=== PATIENT | male | born 1995 | race Caucasian/White ===

== ENCOUNTER 2024-08-29 11:41 | Inpatient (IN) ==
--- OUTSIDE RECORDS SUMMARY | 2024-08-29 11:45 | External Medical Summary | Summary of Care ---
Author Name Unknown Organization [facility] Address [address] [place] [address] Phone [phone] Care Team Providers Care Parallel Computing Software Engineer Name Role Phone Remington Pop DO Primary Care Provider [phone] Reason for Referral * Evaluate & Treat - Unlimited Visits (Within 30 days (routine)) - Pending Review Specialty Diagnoses / Procedures Referred By Jenn cabrera Referred To Contact Psychiatry Diagnoses Recurrent major depressive disorder, in remission (HCC) WALDO (generalized anxiety disorder) Remington Pop DO [address] [place] [address] Referral ID Status Reason Start Date Expiration Date Visits Requested Visits Authorized [id number] Pending Review Specialty Services Required 05/11/2024 [id number] Question Answer Referral Priority Within 30 days (routine) Where should this appointment be scheduled? [facility] Is this referral for medication management? Yes Reason for Referral Anxiety * Evaluate & Treat - Unlimited Visits (Within 30 days (routine)) - Pending Review Specialty Diagnoses / Procedures Referred By Jenn cabrera Referred To Contact Psychology Diagnoses Recurrent major depressive disorder, in remission (HCC) WALDO (generalized anxiety disorder) Remington Pop, DO [address] [place] [address] Referral ID Status Reason Start Date Expiration Date Visits Requested Visits Authorized [id number] Pending Review Specialty Services Required 05/11/[phone] Question Answer Referral Priority Within 30 days (routine) Where should this appointment be scheduled? [facility] Is this referral for medication management? No Reason for Referral: Depression/Anxiety/Bipolar Specific Condition? Generalized Anxiety/Worry Reason for Visit * Reason Comments NEW PATIENT Encounter Details Date Type Department Care Team (Late st Contact Info) Description 05/11/2024 6:00 PM EDT Telemedicine Family Practice [address] [place] [address] [facility] [place], [place] [address] Remington Pop DO [address] [facility] [place] [address] Recurrent major depressive disorder, in remission (HCC)*; WALDO (generalized anxiety disorder) Allergies Active Allergy Reactions Criticality Noted Date Comments Lamotrigine Rash Medium 02/19/2018 Pollen Unknown documented as of this encounter (statuses as of 05/11/2024) Medications Medication Sig Dispensed Refills Start Date End Date Status clonazePAM 0.5 MG Oral Tablet (KlonoPIN) Take 2 Tablets by mouth 2 times a day as needed for Anxiety. Active Desvenlafaxine Succinate ER 100 MG Oral Tablet Extended Release 24 Hour (Pristiq) Take 1 Tablet by mouth in the morning. Active Mirtazapine 30 MG Oral Tablet (Remeron) Take 1 Tablet by mouth at bedtime. Active Gabapentin 600 MG Oral Tablet (Neurontin)Indica tions:Recurrent major depressive disorder, in remission (HCC),WALDO (generalized anxiety disorder) Take 1 Tablet by mouth in the morning and 1 Tablet before bedtime. 60 Tablet 5 05/11/2024 Active busPIRone HCl 15 MG Oral Tablet (Buspar)Indicatio ns:Recurrent major depressive disorder, in remission (HCC),WALDO (generalized anxiety disorder) Take 1 Tablet by mouth 2 times a day. 60 Tablet 5 05/11/2024 Active traZODone (DESYREL) 50 MG Tablet Take 50 mg by mouth at bedtime as needed for Sleep. 05/11/2024 Discontinued (Medication List Clean Up) busPIRone (BUSPAR) 10 MG TabletIndications :WALDO (generalized anxiety disorder) Take 10 mg by mouth 3 times a day. 05/23/2018 05/11/2024 Discontinued (Medication List Clean Up) gabapentin (NEURONTIN) 100 MG CapsuleIndication s:WALDO (generalized anxiety disorder) Take 200 mg by mouth 3 times a day. 05/10/2018 05/11/2024 Discontinued (Medication/ Dose Changed) PARoxetine (PAXIL) 40 MG TabletIndications :WALDO (generalized anxiety disorder) Take 40 mg by mouth daily. 05/05/2018 05/11/2024 Discontinued (Medication List Clean Up) LORazepam (ATIVAN) 1 MG TabletIndications :WALDO (generalized anxiety disorder) Take 1 Tab by mouth daily as needed for Anxiety. 30 Tab 05/27/2018 05/11/2024 Discontinued (Medication List Clean Up) traZODone (DESYREL) 50 MG TabletIndications :WALDO (generalized anxiety disorder),Primary insomnia Take 1 Tab by mouth at bedtime. 30 Tab 5 05/27/2018 05/11/2024 Discontinued (Medication List Clean Up) busPIRone HCl 15 MG Oral Tablet (Buspar) Take 1 Tablet by mouth 2 times a day. 05/11/2024 Discontinued (Refill) Gabapentin 600 MG Oral Tablet (Neurontin) Take 1 Tablet by mouth 2 times a day as needed. 05/11/2024 Discontinued (Refill) documented as of this encounter (statuses as of 05/11/2024) Active Problems Problem Noted Date Diagnosed Date Marijuana use 06/27/2016 Allergic rhinitis 04/25/2016 Varicocele 05/27/2014 documented as of this encounter (statuses as of 05/11/2024) Immunizations Name Administration Dates Next Due DTaP Dipth/Tet/Acell Pertussis (Infanrix), Peds 10/08/2002,02/07/1999,07/24/1998,03/15,01/08/1998 H1N1 2009 Influenza, Intranasal 12/18/2009 HIB PRP-T, 4 Dose, PF, IM (H iberix, ActHib) 11/09/1998,07/24/1998,03/15/1998,01/03 HPV Vaccine, 4-Valent 11/29/2014,07/12/2014,0711/2013 Hepatitis A, Ped/Adol., 18 y ear and below, 2-Dose 09/23/2011,03/15/2011 Hepatitis B, 0-19 yrs 07/24/1998,01/03/1998,10/05 IPV - Polio Virus Vaccine (Inact) 2001,11/09/1998,03/15/1998,01/03 MMR - Measles/Mumps/Rubella Vaccine 10/08/2002,0 11/09/1998 Meningococcal Conjugate Vacc ine (Menactra/Menveo) 05/03/2014,06/29/2009 Pneumococcal Conjugate Vacci ne, 7 Valent 10/23/2000 Seasonal Influenza, Split, I IV3, With Preserve, Inj 08/23/2014,09/13/2011,08/07/2010,06/29,10/08/2007 TDAP, Age 7 and older, IM (Adacel) 06/29/2009 Varicella Vaccine (Chicken Pox) 11/09/1998 documented as of this encounter Social History Tobacco Use Types Packs/Day Years Used Date Smoking Tobacco: Never Smokeless Tobacco: Never Alcohol Use Standard Drinks/Week Comments No 0 (1 standard drink = 0.6 oz pur e alcohol) PHQ-2 Answer Date Recorded PHQ-2 Score 14 09/07/2018 Utilities Answer Date Recorded Do you have trouble paying y our heating, water, or electric bill? (Adult - for ages 18 years and over) Not on file 04/20/2024 Is your family able to pay t he heat, water, or electric bill? (Household - for ages 0-17 years) Not on file 04/20/2024 Does your family have access to good internet? (Household - for ages 0-17 years) Not on file 04/20/2024 Social Connections Answer Date Recorded How often do you feel lonely or isolated from those around you? (Adult - for ages 18 years and over) Not on file 04/20/2024 Sex and Gender Information Value Date Recorded Sex Assigned at Not on file Gender Identity Not on file Sexual Orientation Not on file documented as of this encounter Progress Notes * Remington Pop, DO - 05/11/2024 5:59 PM EDT Subjective: Marcos Maravilla is a 28 year old male. Chief Complaint Patient presents with NEW PATIENT Patient location: HOME. I was in a hospital or clinic location. After connecting through televideo,patient was verified with two unique identifiers. Patient (or authorized legal event sales representative) was then informed that this was a Telemedicine visit and being conducted confidentially over secure lines. Methods to assure confidentiality were taken. Patient acknowledged consent and understanding of pr ivacy and security of the Telemedicine visit. The patient agreed to participate. HPI: Pt here as new patient. Living in [place] for the summer. May be staying longer than that. 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 He came up with a girl but went through a break-up. He was seeing a referral for a psychiatrist and a therapist. He was seeing one in [place]. Elvaexsari has been working well. On gabapentin and buspirone. We discussed Klonopin and concerns of abuse. He had a history of substance abuse. He is working with his psychiatrist on reducing it. I told him I'd like to get a note from his psychiatrist to show that he should be taking this. The last note I have is his primary care suggesting he shouldn't get it. PMHx, meds, and allergies reviewed Patient Active Problem List Diagnosis Varicocele Allergic rhinitis Marijuana use Current Outpatient Medications Medication Sig Dispense Refill busPIRone HCl 15 MG Oral Tablet (Buspar) Take 1 Tablet by mouth 2 times a day. Gabapentin 600 MG Oral Tablet (Neurontin) Take 1 Tablet by mouth 2 times a day as needed. clonazePAM 0.5 MG Oral Tablet (KlonoPIN) Take 2 Tablets by mouth 2 times a day as needed for Anxiety. Desvenlafaxine Succinate ER 100 MG Oral Tablet Extended Release 24 Hour (Pristiq) Take 1 Tablet by mouth in the morning. Mirtazapine 30 MG Oral Tablet (Remeron) Take 1 Tablet by mouth at bedtime. No current facility-administered medications for this visit. Review of patient's allergies indicates: Allergen Reactions Lamotrigine Rash Pollen Unknown OBJECTIVE: There were no vitals taken for this visit. Estimated body mass index is 20.52 kg/m as calculated from the following: Height as of 05/27/18: 1.765 m (5' 9.5"). Weight as of 05/27/18: 64 kg (141 lb). BP Readings from Last 3 Encounters: 05/27/18 122/70 11/06/17 126/84 04/15/17 112/78 Wt Readings from Last 3 Encounters: 05/27/18 64 kg (141 lb) 11/06/17 60.1 kg (132 lb 6.4 oz) 04/15/17 61.8 kg (136 lb 3.2 oz) (21%, Z= -0.82)* * Growth percentiles are based on [facility] (Boys, 2-20 Years) data. ROS: Negative except for above PHYSICAL EXAM: General: alert, healthy, and no distress Head: Normocephalic, No masses, lesions, tenderness or abnormalities ASSESSMENT/Plan Recurrent major depressive disorder, in remission (HCC) (Primary) - Gabapentin 600 MG Oral Tablet (Neurontin); Take 1 Tablet by mouth in the morning and 1 Tablet before bedtime. - busPIRone HCl 15 MG Oral Tablet (Buspar); Take 1 Tablet by mouth 2 times a day. - ADULT/PEDS PSYCHOLOGY REFERRAL OP - ADULT/PEDS PSYCHIATRY REFERRAL OP WALDO (generalized anxiety disorder) - Gabapentin 600 MG Oral Tablet (Neurontin); Take 1 Tablet by mouth in the morning and 1 Tablet before bedtime. - busPIRone HCl 15 MG Oral Tablet (Buspar); Take 1 Tablet by mouth 2 times a day. - ADULT/PEDS PSYCHOLOGY REFERRAL OP - ADULT/PEDS PSYCHIATRY REFERRAL OP It was nice to see Willi again. Buspirone and gabapentin sent and psychology and psychiatry referrals placed. I think he understands my apprehension about giving him Clonazepam. 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 I also don't have him here to do a UDS or med use agreement. I asked him to get a letter from his psychiatrist stating that he should be on this medication and then I would prescribe it until he sees psychiatry. The above was discussed and understanding was expressed. Remington Pop DO documented in this encounter Nursing Notes * Siria Rehman LPN - 05/11/2024 5:51 PM EDT Marcos Maravilla presents as new patient to get established. Medications & HM reviewed/updated. documented in this encounter Plan of Treatment Scheduled Referrals Name Type Priority Associated Diagnoses Orde r Schedule ADULT/PEDS PSYCHOLOGY REFERRAL OP Referral Within 30 days (routine) Recurrent major depressive disorder, in remission (HCC) WALDO (generalized anxiety disorder) Ordered: 05/11/2024 ADULT/PEDS PSYCHIATRY REFERRAL OP Referral Within 30 days (routine) Recurrent major depressive disorder, in remission (HCC) WALDO (generalized anxiety disorder) Ordered: 05/11/2024 Health Maintenance Due Date Last Done Comments Hepatitis C Screening 2015 Depression Monitoring 05/27/2019 05/27/2018 DTaP,Tdap,and Td Vaccines (7 - Td or Tdap) 06/29/2019 06/29/2009, 10/08/2002, 02/07/1999, Additional history exists COVID-19 Vaccine ( season) 2023 Influenza Vaccine (FLU shot) (#1) 2024 08/23/2014, 09/13/2011, 08/07/2010, Additional history exists Hepatitis B Vaccine Completed 07/24/1998, 01/03/1998, 1997 MENINGOCOCCAL (MENACTRA/MENVEO) Completed 05/03/2014, 05/03/2014, 06/29/2009, Additional history exists HPV (Gardasil) Vaccine Completed 5, 07/12/2014, 05/03/2014 HIV Screening Completed 10/28/2019 Pneumococcal Vaccine: Pediatrics (0 to 5 Years) and At-Risk Patients (6 to 64 Years) Aged Out No longer eligible based on patient's age to complete this topic documented as of this encounter Medical Devices Not on filedocumented as of this encounter Visit Diagnoses Diagnosis Recurrent major depressive disorder, in remission (HCC)- Primary WALDO (generalized anxiety disorder) Generalized anxiety disorder documented in this encounter Care Teams Parallel Computing Software Engineer Relationship Specialty Start Date End Date Remington Pop DO PCP - General Family Medicine 04/12/17 documented as of this encounter
--- OUTSIDE RECORDS SUMMARY | 2024-08-29 11:45 | External Medical Summary | Summary of Care ---
Author Name Unknown Organization [facility] Address [address] [facility] [place] [address] Phone [phone] Care Team Providers Care Multi Needle Machine Operator Name Role Phone Remington Pop DO Primary Care Provider [phone] Encounter Details Date Type Department Care Team (Late st Contact Info) Description 05/11/2024 Telephone Family Practice [facility] [address] [place] [address] Remington Pop DO [address] [facility] [place] [address] Allergies Active Allergy Reactions Criticality Noted Date Comments Lamotrigine Rash Medium 02/19/2018 Pollen Unknown documented as of this encounter (statuses as of 05/12/2024) Medications Medication Sig Dispensed Refills Start Date [...] bedtime. Active Gabapentin 600 MG Oral Tablet (Neurontin)Indication s:Recurrent major depressive disorder, in remission (HCC),WALDO (generalized anxiety disorder) Take 1 Tablet by mouth in the morning and 1 Tablet before bedtime. 60 Tablet 5 05/11/2024 Active busPIRone HCl 15 MG Oral Tablet (Buspar)Indications:R ecurrent major depressive disorder, in remission (HCC),WALDO (generalized anxiety disorder) Take 1 Tablet by mouth 2 times a day. 60 Tablet 5 05/11/2024 Active documented as of this encounter (statuses as of 05/12/2024) Active Problems Problem Noted Date Diagnosed Date Marijuana use 06/27/2016 Allergic rhinitis 04/25/2016 Varicocele 05/27/2014 documented as of this encounter (statuses as of 05/12/2024) Immunizations Name Administration Dates Next Due DTaP Dipth/Tet/Acell Pertussis (Infanrix), Peds 10/08/2002,02/07/1999,07/24/1998,03/15,01/08/1998 H1N1 2009 Influenza, Intranasal 12/18/2009 HIB PRP-T, 4 Dose, PF, IM (H iberix, ActHib) 11/09/1998,07/24/1998,03/15/1998,01/03 HPV Vaccine, 4-Valent 11/29/2014,07/12/2014,07/0 11/2013 Hepatitis A, Ped/Adol., 18 y ear and [...] on file documented as of this encounter Miscellaneous Notes * Telephone Encounter - Shelby To [facility] - 05/12/2024 1:59 PM EDT Please reach out to the patient to schedule Psychology and Psychiatry referrals. * Telephone Encounter - Remington Pop DO - 05/11/2024 6:17 PM EDT Please call to schedule psychology and psychiatry referral. Please also schedule follow-up with me in 6 months documented in this encounter Plan of Treatment Upcoming Encounters Date Type Department Care Team (Late st Contact Info) Description 11/16/2024 1:40 PM EST Office Visit Family Practice [facility] [place] [address] [place], [place] [address] Remington Pop DO [address] [place] [address] Health Maintenance Due Date Last Done Comments Hepatitis C Screening 2015 Depression Monitoring 05/27/2019 05/27/2018 DTaP,Tdap,and Td Vaccines (7 - Td or Tdap) 06/29/2019 06/29/2009, 10/08/2002, 02/07/1999, Additional history exists COVID-19 Vaccine (1 - 2023-24 season) 2023 Influenza Vaccine (FLU shot) (#1) [...] Not on filedocumented as of this encounter Care Teams Multi Needle Machine Operator Relationship Specialty Start Date End Date Remington Pop DO PCP - General Family Medicine 04/12/17 documented as of this encounter
--- NOTE | 2024-08-29 12:06 | Emergency Department Note ---
History of Present Illness General Chief complaint: Mental Health Evaluation Stated complaint: SUICIDAL IDEATION, ANXIETY/DEPRESSION Time Seen by Provider: 08/29/24 11:50 Source: patient, RN notes reviewed and old records reviewed (03/22/24-ER visit for shortness of breath/asthma/allergies) Mode of arrival: ambulatory Limitations: no limitations History of Present Illness Maximum Pain Intensity: 7 This patient is a 28-year-old male who comes in after having suicidal ideations he has had no attempt or any definite plan he has had this in the past he does have a history of anxiety and depression he moved here recently from [place] and does not have a psychiatrist or counselor and feels like that causing a lot of his problems he also left his girlfriend has had for some family issues as well. He has been taking occasional extra Xanax to help with anxiety but denies any overdose aspirin or Tylenol use. No homicidal ideations. He sneezed about a week ago and had pain in the right side of his chest that hurts worse with breathing. He did relapse with cocaine and you for 2 days but did not use any for the last 8 days ago. Denies alcohol any other drugs. Denies shortness of breath or trauma or abdominal pain Home Medications Medication Instructions Recorded Confirmed Type bupropion HCl 100 mg tablet,12 hr 100 mg PO DAILY 08/29/24 08/29/24 History sustained-release (Wellbutrin SR) buspirone 15 mg tablet 15 mg PO BID 08/29/24 08/29/24 History clonazepam 0.5 mg tablet (Klonopin) 1 mg PO BID 08/29/24 08/29/24 History desvenlafaxine succinate 100 mg 100 mg PO DAILY 08/29/24 08/29/24 History tablet,extended release 24 hr (Pristiq) gabapentin 600 mg tablet 600 mg PO BID 08/29/24 08/29/24 History (Neurontin) mirtazapine 30 mg tablet (Remeron) 30 mg PO HS 08/29/24 08/29/24 History Allergies Allergy/AdvReac Type Severity Reaction Status Date / Time lamotrigine [From Lamictal] Allergy Rash Unverified 08/29/24 16:22 Past Med/Surg History Problem List (Updated 08/29/24 @ 16:50 by Isaac Armenta MD) Suicidal ideations (Acute) Anxiety (Acute) Depression (Acute) Social History Smoking Status: Never smoker Tobacco Type: E-cigarettes / Vaping Preferred Language: [place] [employer] Regulator Required: No Beliefs That Will Affect Care: None Feels Safe at Home: Yes Gender Identity: Male Immunizations: Past med history anxiety and depression. 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 Review of Systems A total of 10 systems reviewed and were otherwise negative Physical Exam Vital Signs Vital Signs - 24 hr 08/29/24 11:47 08/29/24 13:54 08/29/24 15:18 Temperature 36.4 C L Temperature Source Temporal Artery Scan Pulse Rate 73 54 L Pulse Rate [Left Finger] 52 L Pulse Rhythm Regular Pulse Strength Normal Respiratory Rate 20 18 20 Respiratory Effort / Characteristics Non-Labored Spontaneous Respiratory Depth Normal Respiratory Pattern Regular Blood Pressure 101/65 109/70 Blood Pressure [Left Arm] 108/66 Blood Pressure Mean 77 Blood Pressure Mean [Left Arm] 80 Blood Pressure Position Sitting Pulse Oximetry 98 99 99 Oxygen Delivery Method Room Air Room Air Room Air Sepsis Recent Fever Within 48 Hours No Sepsis New/Unexplained Change in Mental Status No Sepsis Action Taken by Nursing No Action Required General: Well developed well nourished [id number] young male who appears in no acute distress, breathing comfortably on room air. Normal speech HEENT: Normal cephalic atraumatic. Pupils are equal round and reactive to light. Extraocular movements are intact. Oropharynx is pink with moist mucous membranes. No swelling of the mouth lips or tongue. Neck: Supple with a midline trachea. No meningeal signs or stiffness, no JVD or bruits. No Stridor. Chest: Clear to auscultation bilaterally. No wheezes or rhonchi. No increased work of breathing. Heart: Regular rate and rhythm without murmurs or gallops. Abdomen: Soft nontender, nondistended without rebound guarding or rigidity. Extremities: No cyanosis clubbing or edema. No calf tenderness or assymetry Spine/Back. Non tender to palpation. No CVA tenderness Skin: Good turgor without rashes. Neurologic exam: Cranial nerves two through 12 are intact. Motor and sensation are intact and symmetrical throughout. Psych: Normal thought process and affect he does have suicidal ideations Course Administered Medications Nicotine Polacrilex (Nicotine Polacrilex 2 Mg Gum) 2 piece MT Q2H PRN PRN Reason: smoking cessation Stop: 09/28/24 16:14 Last Admin: 08/29/24 16:41 Dose: 2 piece Documented By: STEVEN Discontinued Medications Miscellaneous Information (Patient's Allergy Info Needs Entered) 1 each N/A NOW STA Stop: 08/29/24 16:20 Last Admin: 08/29/24 16:42 Dose: Not Given Documented By: STEVEN Medical Decision Making Differential Diagnosis Depression, anxiety, toxicologic, metabolic, suicidal ideation, rib injury, pulmonary injury Medical Records Attestation: I reviewed the patient's medical records. Home Medications Current Medication List: was personally reviewed by me Laboratory Data Attestation: I reviewed the patient's lab results. 08/29/24 12:05 08/29/24 12:05 Lab Results 08/29/24 Range/Units 12:05 WBC 8.94 (4.8-10.8) K/ul RBC 4.95 (4.70-6.10) M/uL Hgb 14.3 (14.0-18.0) g/dl Hct 41.2 L (42.0-52.0) % MCV 83.2 (80.0-100.0) fL MCH 28.9 (25.0-34.0) pg MCHC 34.7 (32.0-36.0) g/dL RDW Std Deviation 39.2 (36.4-46.3) fL RDW Coeff of [place] 13.1 (11.5-14.5) % Plt Count 346 (130-400) K/uL MPV 10.2 (9.4-12.4) fL Immature Gran % (Auto) 0.2 % Neut % (Auto) 75.5 % Lymph % (Auto) 17.6 % [place] % (Auto) 6.2 % Eos % (Auto) 0.4 % Baso % (Auto) 0.1 % Neut # (Auto) 6.75 H (1.40-6.50) K/uL Lymph # (Auto) 1.57 (1.20-3.40) K/uL [place] # (Auto) 0.55 (0.11-0.59) K/uL Eos # (Auto) 0.04 (0.00-0.50) K/uL Baso # (Auto) 0.01 (0.00-0.20) K/uL Immature Gran # (Auto) 0.02 (0.01-0.20) K/uL Sodium 140 (136-145) mmol/L Potassium 4.0 (3.5-5.1) mmol/L Chloride 106 (98-107) mmol/L Carbon Dioxide 26 (21-32) mmol/L Anion Gap 8 (3-11) BUN 12 (6-23) mg/dl Creatinine 0.87 (0.6-1.4) mg/dl Est Cr Clr Drug Dosing 124.5 ml/min eGFR 122.04 BUN/Creatinine Ratio 13.8 (10-20) Glucose 99 (70-99(Fasting)) mg/dl Calcium 9.6 (8.6-10.3) mg/dl Total Bilirubin 0.4 (0.2-1.0) mg/dl AST 15 (13-39) U/L ALT 12 (7-52) U/L Alkaline Phosphatase 73 (34-104) U/L Total Protein 7.3 (6.0-8.3) gm/dl Albumin 4.6 (3.4-5.0) gm/dl Globulin 2.7 (2.5-4.0) gm/dl Albumin/Globulin Ratio 1.7 (0.9-2) TSH 2.243 (0.300-4.500) uIu/ml Urine Color Yellow Urine Appearance Clear (Clear) Urine pH 6.5 (4.5-7.5) Ur Specific [place] 1.007 (1.000-1.030) Urine Protein Negative (Negative) Urine Glucose (UA) Negative (Negative) Urine Ketones Negative (Negative) Urine Blood Negative (Negative) Urine Nitrite Negative (Negative) Urine Bilirubin Negative (Negative) Urine Urobilinogen Negative (Negative) Ur Leukocyte Esterase Negative (Negative) Salicylates < 3.0 L (3.0-30) mg/dl Urine Opiates Screen Neg (Neg) Ur Methadone, Qual Neg (Neg) Urine Fentanyl Screen Neg (Neg) Acetaminophen 11 (10-30) ug/ml Urine Barbiturates Neg (Neg) Ur Phencyclidine (PCP) Neg (Neg) U Amphetamin/Meth Scrn Neg (Neg) MDMA (Ecstasy) Screen Neg (Neg) U Benzodiazepines Scrn Neg (Neg) Ur Cocaine Metabolite Neg (Neg) U Marijuana (THC) Screen Pos H (Neg) Ethyl Alcohol mg/dL < 10.0 (<10.0) mg/dl SARS-CoV-2, RNA, NAAT NEGATIVE (NEGATIVE) Imaging Data Attestation: I personally reviewed and interpreted this imaging study as follows: My Impression: Chest x-rayno acute infiltrate, failure, pneumothorax seen Radiologist's Impression: Chest X-Ray 08/29/24 12:02 SINGLE VIEW CHEST CLINICAL HISTORY: Atypical/right-sided chest pain. FINDINGS: An AP, portable, upright chest radiograph is compared to study dated 03/22/2024. The cardiomediastinal silhouette is unremarkable. The lungs and pleural spaces are clear. No pneumothorax is seen. There are chronic/healed right-sided rib fractures. IMPRESSION: No active disease in the chest. ACT 112: Negative or not required by law. Electronically signed by: John Alicia M.D. 08/29/2024 12:47 PM MDM Narrative This patient comes in as described above he is here for treatment and evaluation of depression/anxiety with suicidal ideations .he is willing to come in voluntarily blood work was obtained he had a relapse on cocaine over a week ago and then said after he sneezed 1 time he had right-sided chest pain since then that hurts when he breathes I did order chest x-ray as well. Chest x-ray was unremarkable. The patient is remained stable his labs were unremarkable .he has nothing shows acute infectious toxicologic or metabolic etiology for his symptoms. He is willing to come in voluntarily for his anxiety and depression with suicidal ideations. The patient was seen by school lunch manager ,Lillian, and 3 S. was consulted came and saw the patient is going to admit him voluntarily. Also, I did discuss his care with his mother who is here in the ER as well. Impression & Plan Depression, Anxiety, Suicidal ideations Discharge Plan Visit Data Chief Complaint: Mental Health Evaluation Stated Complaint: SUICIDAL IDEATION, ANXIETY/DEPRESSION ED Provider: Isaac Armenta Discharge Problem: Depression, Anxiety, Suicidal ideations Patient Disposition: Admitted As Inpatient Discharge Instructions Interventions: ED Discharge Assessment Last Done: 08/29/24 15:18
[2024-08-29 12:26] LABS: Appearance Urine Clear (Clear); Bilirubin Urine Negative (Negative); Blood Urine Negative (Negative); Color Urine Yellow; Glucose Urine UA Negative (Negative); Ketones Urine Negative (Negative); Leukocyte Esterase Urine Negative (Negative); Nitrite Urine Negative (Negative); Protein Urine Negative (Negative); Specific Gravity Urine 1.007 (1.000-1.030); Urobilinogen Urine Negative (Negative); pH Urine 6.5 (4.5-7.5)
[2024-08-29 12:32] LABS: Hematocrit (blood only) 41.2 % (42.0-52.0); Hemoglobin 14.3 g/dl (14.0-18.0); Mean Corpuscular Hemoglobin 28.9 pg (25.0-34.0); Mean Corpuscular Volume 83.2 fL (80.0-100.0); Red Blood Count 4.95 M/uL (4.70-6.10); White Blood Count 8.94 K/ul (4.8-10.8)
[2024-08-29 12:33] LABS: Basophils # (auto) 0.01 K/uL (0.00-0.20); Basophils % (auto) 0.1 %; Eosinophils # (auto) 0.04 K/uL (0.00-0.50); Eosinophils % (auto) 0.4 %; Immature Granulocytes # (auto) 0.02 K/uL (0.01-0.20); Immature Granulocytes % (auto) 0.2 %; Lymphocytes # (auto) 1.57 K/uL (1.20-3.40); Lymphocytes % (auto) 17.6 %; Mean Corpuscular Hgb Conc 34.7 g/dL (32.0-36.0); Mean Platelet Volume 10.2 fL (9.4-12.4); Monocytes # (auto) 0.55 K/uL (0.11-0.59); Monocytes % (auto) 6.2 %; Neutrophils # (auto) 6.75 K/uL (1.40-6.50); Neutrophils % (auto) 75.5 %; Platelet Count 346 K/uL (130-400); RDW Coefficient of Variation 13.1 % (11.5-14.5); RDW Standard Deviation 39.2 fL (36.4-46.3)
[2024-08-29 12:46] LABS: Acetaminophen 11 ug/ml (10-30); Salicylate < 3.0 mg/dl (3.0-30)
[2024-08-29 12:48] LABS: Albumin Globulin Ratio 1.7 (0.9-2); Albumin Level 4.6 gm/dl (3.4-5.0); BUN Creatinine Ratio 13.8 (10-20); Bilirubin,Total 0.4 mg/dl (0.2-1.0); Calcium 9.6 mg/dl (8.6-10.3); Creatinine Clr Calc Pharmacy 124.5 ml/min; Globulin 2.7 gm/dl (2.5-4.0); Total Protein 7.3 gm/dl (6.0-8.3)
--- NOTE | 2024-08-29 12:49 | XRay Report ---
SINGLE VIEW CHEST CLINICAL HISTORY: Atypical/right-sided chest pain. FINDINGS: An AP, portable, upright chest radiograph is compared to study dated 03/22/2024. The cardiom ediastinal silhouette is unremarkable. The lungs and pleural spaces are clear. No pneumothorax is see n. There are chronic/healed right-sided rib fractures. IMPRESSION: No active disease in the chest. ACT 112: Negative or not required by law. Electronically signed by: John Alicia M.D. 08/29/2024 12:47 PM
[2024-08-29 12:59] LABS: Amphetamines+Metham, Urine Neg (Neg); Barbiturates, Urine Neg (Neg); Benzodiazepine, Urine Neg (Neg); Cocaine, Urine Neg (Neg); Fentanyl, Urine Neg (Neg); MDMA (Ecstacy), Urine Neg (Neg); Marijuana, Urine Pos (Neg); Methadone, Urine Neg (Neg); Opiate, Urine Neg (Neg); Phencyclidine, Urine Neg (Neg)
[2024-08-29 13:04] LABS: Thyroid Stimulating Hormone 2.243 uIu/ml (0.300-4.500)
[2024-08-29] MEDS ORDERED: ACETAMINOPHEN 325 MG TAB PO PRN (16:27)
[2024-08-29] MEDS ORDERED: ALUMINUM/MAGNESIUM SUSP 30 ML UDC PO PRN (16:27)
[2024-08-29] MEDS ORDERED: MAGNESIUM HYDROXIDE SUSP 30 ML UDC PO PRN (16:27)
[2024-08-29] MEDS ORDERED: SODIUM CHLORIDE 0.65% NA SOLN 45 ML (OCEAN) PRN (16:27)
[2024-08-29] MEDS: NICOTINE POLACRILEX 2 MG GUM MT PRN (16:41)
[2024-08-29] MEDS: Patient's ALLERGY Info needs ENTERED STA (16:42)
[2024-08-29] MEDS: NICOTINE 21 MG/24 HR TDSY TD SCH (16:47)
[2024-08-29] MEDS: busPIRone 15 MG TAB PO SCH (21:17)
[2024-08-29] MEDS: MIRTAZAPINE TAB 15 MG TAB PO SCH (21:17)
[2024-08-29] MEDS: GABAPENTIN 600 MG TAB PO SCH (21:18)
[2024-08-29] MEDS: clonazePAM 0.5 MG TAB PO SCH (21:20)
--- NOTE | 2024-08-30 09:03 | History & Physical ---
Date of Service August 30, 2024 Impression / Recommendations Impression MEENAKSHI HEARD is a 28-year-old man who currently lives in [place] alone, has a history of depression, anxiety, polysubstance use, and was admitted on 08/29/24 15:33 on a 201 voluntary commitment for SI with plan to overdose on his medications. Diagnostically consistent with unspecified depression with differential including MDD vs polysubstance use-induced mood changes. Also meets criteria for WALDO with panic attacks. History and recent substance use consistent with cocaine and benzodiazepine use disorder. He minimizes his recent substance use stating that many would consider it a "slip up" rather than a relapse but he recognizes that once he starts to use cocaine again that it's a very vulnerable time for him to escalate his use more. He feels his Xanax use is not problematic as it only occurs when he uses cocaine. He feels in control of his Klonopin use and becomes very anxious during the admission when I discuss my concerns about consistent Klonopin use, especially daily and in combination with gabapentin given that he recently used Xanax. He does report using fentanyl test strips to ensure the Xanax was not contaminated. It is hard to determine if his visible distress of increased anxiety and bargaining related to asking me to ensure he'll be given a Klonopin script at discharge is due to recent misuse/overuse of his prescribed Klonopin/benzodiazepine use disorder vs due to his report of long history of prescribed benzodiazepine use and physiologic dependence on this and his report that this serves as a harm reduction strategy to help him avoid use of cocaine. It does seem somewhat atypical that he is focused on this being on the treatment option for his anxiety and not being interested in considering other possibilities (even medications he has never tried before). We will need to confirm his recent outpatient scripts from [place] given UDS was negative for benzodiazepines (though Klonopin and Xanax even when used appropriately do not always show up on UDS). Will continue lower dose of Klonopin for now to reduce risk for benzodiazepine withdrawal given unclear recent use pattern. Discussed medication treatment options in detail including different classes for addressing depression, anxiety, low energy and substance use and strategies for addressing depression. This discussion included review of various options for depression augmentation and options to address his anxiety. Unfortunately after discussing my concerns about his fairly high dose Klonopin use, in addition to gabapentin (reviewed risks of fatal respiratory suppression in combination), as well with recent Xanax use and trying to avoid using both stimulating medications with sedating medications he was resistant to wanting to make any medication changes including to his depression medications. He consented to continuing with his current medications with change of gabapentin to split dosing of 300mg BID (as was taking 600mg HS) and consents to lower dose of Klonopin. Discussed that ideally we could start process of slow Klonopin taper with goal of only having a few doses per month for panic attacks and optimizing other pharmacological options for anxiety and depression. Reviewed that contingency management remains most evidence based treatment for cocaine use disorder though Wellbutrin is sometimes used as part of harm reduction strategy. Reviewed side effects for his medications and discussed option for medication side effects resources from nursing should he like more information which he understands. Reviewed that with Pristiq, because of extended release formulation, that taper may not be an option immediately due to lack of availability on hospital formulary. For now he would like to continue this and discussed that it is the most likely to help with depression and anxiety. The patient's, use history and negative consequences suggests substance use disorder. Motivational interviewing was done as a brief intervention. Intervention was greater than 5 minutes in length and included assessing readiness to quit, advice on how to reduce or abstain and to set a specific goal for this hospitalization. 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 The patient is in contemplative stage with regards to transtheoretical model of change. Recommended residential substance use treatment as an option which he declines. Discussed options for outpatient dual diagnosis treatment which is willing to consider. Discussed decreasing consumption due to disinhibiting effects and potential for worsening psychiatric symptoms. Overall I spent a total of 100 minutes for this admission including review of chart records, review of labwork, direct evaluation of the patient, counseling the patient, ordering medication, risk assessment, discussion with the psychiatric liason RN and documentation in the electronic health record. (1) Suicidal ideations: (2) Major depression, recurrent: (3) Generalized anxiety disorder with panic attacks: (4) Depression: (5) Anxiety: (6) Substance use disorder: (7) Cocaine use disorder: Plan 08/30/2024: The patient was admitted to the [facility] (locked inpatient mental health unit) on q15 min checks (behavioral with suicide precautions) for safety. The patient will participate in group, recreational, and milieu therapies and will be offered additional individual and family sessions as clinically appropriate. -Need to get external records and call [place] pharmacy to confirm recent benzodiazepine and other medication scripts are accurate since they were filled outside of the state -For now will continue with prior to admission medications of * mirtazapine 30mg HS * Pristiq 100mg daily * Buspar 15mg BID -Adjust prior to admission medications of: * gabapentin 300mg BID (reviewed risks including but not limited to respiratory suppression, fatality, need to avoid driving or operating machinery while using, potential for misuse) * Klonopin reduced to 0.5mg BID -Work on outpatient referrals for psychiatry, therapy (ideally with dual diagnosis focus) Inventory Assets Strengths: supportive relationships, willing to get treatment Needs: safety and stabilization, medication adjustment, additional coping skills, increased outpatient services Suicide Risk Level Suicide Risk Level: Moderate (q15 min suicide checks) (depression with SI with plan prior to admission but denies SI today, feels safe in the hospital, feels able to ask for support from staff if needed or if his mood worsens) Risk Factors Assessment Male: Yes : Yes Do You Have Access To A Gun?: No Health Problems: No Mental Health Diagnoses: Yes Substance Use Disorders: Yes Previous Attempt: No Family History of Suicide: No Previous Psychiatric Hospitalization: Yes Hopelessness: Yes Protective Factors Assessment Employed: Yes ([employer]) Stable Relationships: Yes Supportive Family: Yes Good Rapport with Provider: Yes (with telemedicine provider in [place]) Psychiatric History Identifying Data MEENAKSHI HEARD is a 28-year-old man who currently lives in [place] alone, has a history of depression, anxiety, polysubstance use, and was admitted on 08/29/24 15:33 on a 201 voluntary commitment for SI with plan to overdose on his medications. Chief Complaint "I knew I was going to need help". History of Present Illness Willi presents for psychiatric admission for worsening depression and SI with plan of overdosing on his medications in the context of multiple psychosocial stressors including relapse of polysubstance use, not being able to attend therapy due to his 6 day a week work schedule, work schedule, recently ended a relationship but has felt guilt trying to keep her from talking with him and his dad reaching out to try to reconnect. About three months his depression starting to worsen and it's escalated recently. He endorses depressive symptoms including anhedonia, increased irritability vs more direct with others about the truth, tearfulness, self- guilt, hopelessness, decreased energy, decreased motivation, excessive sleep, decreased appetite with all symptoms occurring even prior to relapse of cocaine and Xanax use. Describes that depression and anxiety typically both worsen then his anxiety will start to lessen and suicidal thoughts will emerge as the depression intensifies. He endorses that anxiety has been "not too bad", and "under control". Prior to the relapse, and use of Xanax, was because he was trying to avoid overuse of his benzodiazepines. He uses Xanax when using cocaine because he otherwise has more panic attacks. Typically has panic attacks, when not using substances, once a week on average. Recently was having more panic attacks at work. He describes fear of not being able to have his anxiety managed due to his substance use issues because of long need for benzodiazepines since age 18. He is currently prescribed psychiatric medications of: Wellbutrin SR 100mg daily (worked in the past but had increased anxiety, it has seemed to help with depression but started one week ago), Pristiq 100mg or maybe 75mg daily (plan was to taper this, fairly recent), Buspar 15mg BID (has been on this a long time and finds it helpful), Klonopin 1mg BID prn (unable to verify in PDMP as reports his family has been mailing scripts from [place], over the last month has been taking 1mg BID every day), gabapentin 600mg BID (has been on this for "awhile", for anxiety, takes it as 600mg HS), mirtazapine 30mg HS (about 6 months, can make him a little groggy in the morning sometimes but helps anxiety). He wants to taper off the Pristiq and increase the Wellbutrin. He notes "I just came here to get a therapist and a psychiatrist". He feels all of his medications are working well except his depression medications. Psychiatric ROS notable for no current nor history of symptoms of eddie, psychosis, PTSD, OCD nor eating disorder. Additional history per ED CM note on 08/29/2024: "Met with Meenakshi to complete psychiatric assessment. Meenakshi has been struggling with suicidal thoughts increasing in severity for one month. He moved back to the area from [place] approximately one month ago after he ended his relationship with his girlfriend. He shares this break-up is a small piece of why his mental health is so low right now. He carries diagnoses of depression and anxiety for which he followed with a psychiatrist and therapist in [place]. Meenakshi endorses depressive symptoms that are significantly impacting his daily life. He is employed at the [employer] and is finding it hard to even get out of bed in the morning. He has had daily suicidal thoughts for approximately a month now and has had distressing thoughts of overdosing on his medication. He is prescribed Effexor and Gabapentin. One week ago, Wellbutrin was added to his medications. He has had to have his medications shipped to him while he is trying to establish with outpatient providers locally. Meenakshi shares that he has limited to no social supports locally. The rest of his family lives in [place]. He lives in an apartment alone. He feels very isolated. He worries that if he does not sign himself in for inpatient treatment that he will act on his suicidal thoughts. Meenakshi denies homicidal ideation, auditory and visual hallucinations, and any history of self-injurious behavior. He denies alcohol use. He does vape nicotine daily and is requesting nicotine gum. Meenakshi has a history of substance use and his drug of choice was cocaine. He did have a relapse of cocaine a little over a week ago. Meenakshi shares that this relapse has only made him feel like a piece of shit and even worse about himself." Past Psychiatric History Current Psychiatric Diagnosis: Depression, Anxiety Outpatient Services: psychiatry via telemedicine Dr. Ana Painter, no current therapist Previous Psych Admissions: 1-2 prior hospitalizations, 3-4 years ago in [facility] Do You Have Access To A Gun?: No History of Previous Suicide Attempt: No Past Medication Trials: -hx of Effexor & Wellbutrin being most effective (recalls being on as high of a dose as Wellbutrin XL 150mg gave increased anxiety) -tried "all of the antidepressants" over the past 5 years -benzodiazepines including ativan -trazodone (gives nightmares) -hx of clonidine (but caused too low HR and BP) -hx lamictal (caused rash all over) -hx Seroquel trial for sleep -hx of Adderall -propranolol helped in the past for panic attacks (he thinks maybe was on 5mg) Additional Notes: No local providers, family has been mailing his medications from his provider in [place] Past Head Trauma/Neuro History History of Concussion/Seizure: Yes hx concussion Allergies Allergy/AdvReac Type Severity Reaction Status Date / Time lamotrigine [From Lamictal] Allergy Rash Unverified 08/29/24 16:22 Home Medications Medication Instructions Recorded Confirmed Type bupropion HCl 100 mg tablet,12 hr 100 mg PO DAILY 08/29/24 08/29/24 History sustained-release (Wellbutrin SR) buspirone 15 mg tablet 15 mg PO BID 08/29/24 08/29/24 History clonazepam 0.5 mg tablet (Klonopin) 1 mg PO BID 08/29/24 08/29/24 History desvenlafaxine succinate 100 mg 100 mg PO DAILY 08/29/24 08/29/24 History tablet,extended release 24 hr (Pristiq) gabapentin 600 mg tablet 600 mg PO BID 08/29/24 08/29/24 History (Neurontin) mirtazapine 30 mg tablet (Remeron) 30 mg PO HS 08/29/24 08/29/24 History Family History Family History of: None and Doesn't Know Family Mental Health History Comment: not sure but doesn't think Alcohol History Hx of Alcohol Use Over the Past 12 Months: No AUDIT Total Score: 0 Smoking Use Have You Smoked or Used Tobacco Products in the Last 30 Days: Yes tobacco type: e-cigarettes Smoking Status: Current some day smoker Smoking packs per day: 1 Substance History Hx of Prescription Med Misuse Over the Past 12 Months: No Hx of Over the Counter Med Misuse Over the Past 12 Months: No Hx of Inhalent Misuse Over the Past 12 Months: No Hx of Organic Substance Use Over the Past 12 Months: Yes (marijuana) Hx of Illegal Substances/Street Drug Use Over Past 12 Months: Yes (recent coca ine relapse) Problems as a Result of Past Substance Use: Relationships Ended Problems as a Result of Past Substance Use Comments: Cocaine use Since his parents divorce he started using substances "out of control" for 3-4 years, "in and out of rehabs" using cocaine via sniffing and sometimes Xanax. Attended a 30 day inpatient and then a 30 day sober living house in [place] to get treatment. After that he was then sober for 2 years noting "something switched in me", "the feeling of needing to get a up" left me and then in the past month he thinks not seeing a therapist and working too much and not exercising seems to have piled up. He thinks being depressed also lead to this as he didn't care if something bad happened to him. About 9-11 days ago started using cocaine via sniffing and Xanax (he estimates 2-4mg/day). He likes that cocaine gives him "a serotonin and dopamine and energy it gives me to get stuff done", doesn't like that "it's impacted his nose, what it makes me feel about myself, the financial problems, how I treat other people". Likes that Xanax "when I feel like the world is closing in on me it stops that, that I can breath, that I can get out of my apartment and go do stuff if I need to", doesn't like that "it could cause longterm issues like early dementia". Cannabis use. 5-6 years ago used psilocybin and found that very beneficial for depression. No history of IV drug use Personal History Living Arrangements: Apartment Childhood: Raised in [place], attended one year at [employer] then went to [place] then moved to [place]. His parents 6 years ago. Mom lives in [place], Dad lives in [place], has an older sister. Gets along well with his mom and sister and feels they are supportive. 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 ([employer]) Marital Status: Single Number Of Children: n/a Beliefs That Will Affect Care: None Current Legal Problems: No Hx Legal Problems: Yes (DUI ) Hx Traumatic Life Events: Yes Patient History Social History Smoking Status: Current some day smoker Tobacco Type: E-cigarettes / Vaping Preferred Language: Filipino Personal Lines Sales Executive Required: No Beliefs That Will Affect Care: None Feels Safe at Home: Yes Gender Identity: Male Review of Systems Review of Systems: All systems reviewed & are unremarkable except as noted in HPI & below (rib pain on the right over the last 1.5 weeks ) Physical Exam Psychiatric: Orientation: alert and oriented x 3 Apperance: appropriately dressed and appropriately groomed Eye Contact: good eye contact Motor Behavior: no abnormal motor movements Speech: normal rate/rhythm/volume of speech Affect: + depressed affect and + flat affect Mood: + depressed mood Thought Process: goal directed thought process Thought Content: reality based without delusions Suicidal Thoughts: denies suicidal plan and denies s uicidal intent; + reports suicidal thoughts (intermittent thoughts ) Homicidal Thoughts: denies homicidal thoughts Hallucinations: no auditory nae lucinations and no visual hallucinations Cognition: recent memory grossly intact, remote memory grossly intact, attention grossly intact and language grossly intact Estimated Intelligence: consistent with education level Insight: + limited insight Judgment: + limited judgement Vital Signs (Past 24 Hours): Last Vital Signs Temp 36.6 C 08/30/24 06:54 Pulse 44 L 08/30/24 06:55 Resp 16 08/30/24 06:54 BP 94/57 L 08/30/24 06:55 Pulse Ox 99 08/29/24 15:56 O2 Del Method Room Air 08/29/24 15:56 Exam Statement: A physical exam was performed in the ED by Dr. Armenta for the purposes of medical clearance. I accept that physical as correct and adequate for the purposes of the inpatient physical exam. Results & Data ([facility]) Laboratory Results Laboratory Results - last 24 hr 08/29/24 12:05 WBC 8.94 RBC 4.95 Hgb 14.3 Hct 41.2 L MCV 83.2 MCH 28.9 MCHC 34.7 RDW Std Deviation 39.2 RDW Coeff of [place] 13.1 Plt Count 346 MPV 10.2 Immature Gran % (Auto) 0.2 Neut % (Auto) 75.5 Lymph % (Auto) 17.6 [place] % (Auto) 6.2 Eos % (Auto) 0.4 Baso % (Auto) 0.1 Neut # (Auto) 6.75 H Lymph # (Auto) 1.57 [place] # (Auto) 0.55 Eos # (Auto) 0.04 Baso # (Auto) 0.01 Immature Gran # (Auto) 0.02 Sodium 140 Potassium 4.0 Chloride 106 Carbon Dioxide 26 Anion Gap 8 BUN 12 Creatinine 0.87 Est Cr Clr Drug Dosing 124.5 eGFR 122.04 BUN/Creatinine Ratio 13.8 Glucose 99 Calcium 9.6 Total Bilirubin 0.4 AST 15 ALT 12 Alkaline Phosphatase 73 Total Protein 7.3 Albumin 4.6 Globulin 2.7 Albumin/Globulin Ratio 1.7 TSH 2.243 Urine Color Yellow Urine Appearance Clear Urine pH 6.5 Ur Specific Price 1.007 Urine Protein Negative Urine Glucose (UA) Negative Urine Ketones Negative Urine Blood Negative Urine Nitrite Negative Urine Bilirubin Negative Urine Urobilinogen Negative Ur Leukocyte Esterase Negative Salicylates < 3.0 L Urine Opiates Screen Neg Ur Methadone, Qual Neg Urine Fentanyl Screen Neg Acetaminophen 11 Urine Barbiturates Neg Ur Phencyclidine (PCP) Neg U Amphetamin/Meth Scrn Neg MDMA (Ecstasy) Screen Neg U Benzodiazepines Scrn Neg Ur Cocaine Metabolite Neg U Marijuana (THC) Screen Pos H U Marijuana THC Carboxy Pending Drug Screen Comment Pending Ethyl Alcohol mg/dL < 10.0 SARS-CoV-2, RNA, NAAT NEGATIVE Current Inpatient Medications Current Inpatient Medications: Current Inpatient Medications Acetaminophen (Acetaminophen 325 Mg Tab) 650 mg PO Q4H PRN PRN Reason: Headache or Minor Fever Stop: 09/28/24 16:26 Al Hydrox/Mg Hydrox/Simethicone (Aluminum/Magnesium Susp 30 Ml Udc) 30 ml PO Q4H PRN PRN Reason: GI Upset Stop: 09/28/24 16:26 Bismuth Subsalicylate (Bismuth Subsalicylate 262 Mg Chew) 2 tab PO Q30M PRN PRN Reason: Loose Stool/Diarrhea Stop: 09/28/24 16:26 Buspirone HCl (Buspirone 15 Mg Tab) 15 mg PO BID FRANKIE Stop: 09/28/24 20:59 Last Admin: 08/29/24 21:17 Dose: 15 mg Clonazepam (Clonazepam 0.5 Mg Tab) 0.5 mg PO BID FRANKIE Stop: 09/28/24 20:59 Last Admin: 08/29/24 21:20 Dose: 0.5 mg Gabapentin (Gabapentin 600 Mg Tab) 300 mg PO BID FRANKIE Stop: 09/28/24 20:59 Last Admin: 08/29/24 21:18 Dose: 300 mg Hydroxyzine HCl (Hydroxyzine Hcl 25 Mg Tab) 50 mg PO HSZ PRN PRN Reason: Insomnia Stop: 09/28/24 16:26 Hydroxyzine HCl (Hydroxyzine Hcl 25 Mg Tab) 25 mg PO Q4H PRN PRN Reason: Anxiety Stop: 09/28/24 16:26 Magnesium Hydroxide (Magnesium Hydroxide Susp 30 Ml Udc) 30 ml PO DAILY PRN PRN Reason: Constipation Stop: 09/28/24 16:26 Mirtazapine (Mirtazapine Tab 15 Mg Tab) 30 mg PO HS [facility] Stop: 09/28/24 21:59 Last Admin: 08/29/24 21:17 Dose: 30 mg Miscellaneous (Remove Nicoderm Patch) 1 each N/A DAILY@0859 [facility] Stop: 09/29/24 08:58 Nicotine (Nicotine 21 Mg/24 Hr Tdsy) 1 patch TD QAM [facility] Stop: 09/28/24 16:29 Last Admin: 08/29/24 16:47 Dose: 1 patch Nicotine Polacrilex (Nicotine Polacrilex 2 Mg Gum) 2 piece MT Q2H PRN PRN Reason: smoking cessation Stop: 09/28/24 16:14 Last Admin: 08/29/24 16:41 Dose: 2 piece Sodium Chloride (Sodium Chloride 0.65% Na Soln 45 Ml ([place])) 1 - 2 sprays NA PRN PRN PRN Reason: Nasal Dryness/Congestion Stop: 09/28/24 16:26
[2024-08-30] MEDS: hydrOXYzine HCl 25 MG TAB PO PRN (17:52)
--- NOTE | 2024-08-31 08:58 | Psychiatric Progress Note ---
Date of Service August 31, 2024 Impression / Recommendations Impression MEENAKSHI HEARD is a 28-year-old man who currently lives in [place] alone, has a history of depression, anxiety, polysubstance use, and was admitted on 08/29/24 15:33 on a 201 voluntary commitment for SI with plan to overdose on his medications. Diagnostically consistent with unspecified depression with differential including MDD vs polysubstance use-induced mood changes. Also meets criteria for WALDO with panic attacks. History and recent substance use consistent with cocaine and benzodiazepine use disorder. A: Ongoing depression but denies SI today, anxiety well controlled. Tolerating Klonopin taper so far without any side effects or panic attacks. No signs of benzo withdrawal. He's hopeful to discharge in the next few days. Message left for his outpatient psychiatrist in [place] for continuity of care. Reviewed that he filled a Klonopin script at the end of July and collateral from his mother and pharmacy review confirmed recent script filled again on August 23 which his mother will be bringing to him soon so he will have access to at least one additional Klonopin script for prn use. Reviewed additional medication options for depression treatment, he wants to continue with Pristiq, and would like to restart Wellbutrin but continue at low dose and SR to prevent increased anxiety. He declines option to increase Buspar or addition depression augmentation with abilify or alternative options. He wants to continue with mirtazapine and would like to have additional gabapentin and propranolol available as prns for panic attacks and anxiety. Discussed this was reasonable given ongoing taper of Klonopin with transition to prn use instead of scheduled use as he's been taking it recently. Reviewed side effects including but not limited to: addictive potential/not operating machinery or driving/potential for fatal respiratory suppression if used in excess or in combination with benzodiazepines or alcohol or opioids with gabapentin and low BP/syncope with propranolol. Overall, I spent a total of 55 minutes on this case including meeting with the patient, reviewing the chart, nursing report, multidisciplinary team meeting, orders, and documentation and reviewing collateral from family and leaving message for outpatient provider and reviewing outpatient scripts. (1) Suicidal ideations: (2) Major depression, recurrent: (3) Generalized anxiety disorder with panic attacks: (4) Depression: (5) Anxiety: (6) Substance use disorder: (7) Cocaine use disorder: Plan 08/31/2024: -Restart Wellbutrin SR 100mg daily tomorrow AM -Decrease Klonopin to 0.5mg qAM and 0.25mg HS and then starting tomorrow to 0.5mg daily prn for panic attacks -Increase gabapentin to 300mg BID prn for anxiety in addition to scheduled 300mg BID -Start propranolol 10mg BID prn for panic attacks 08/30/2024: The patient was admitted to the [facility] ([facility] mental health unit) on q15 min checks (behavioral with suicide precautions) for safety. The patient will participate in group, recreational, and milieu therapies and will be offered additional individual and family sessions as clinically appropriate. -Need to get external records and call [place] pharmacy to confirm recent benzodiazepine and other medication scripts are accurate since they were filled outside of the state -For now will continue with prior to admission medications of * mirtazapine 30mg HS * Pristiq 100mg daily * Buspar 15mg BID -Adjust prior to admission medications of: * gabapentin 300mg BID (reviewed risks including but not limited to respiratory suppression, fatality, need to avoid driving or operating machinery while using, potential for misuse) * Klonopin reduced to 0.5mg BID -Work on outpatient referrals for psychiatry, therapy (ideally with dual diagnosis focus) Inventory Assets Strengths: supportive relationships, willing to get treatment Needs: safety and stabilization, medication adjustment, additional coping skills, increased outpatient services Suicide Risk Level Suicide Risk Level: Moderate (q15 min suicide checks) (depression with SI with plan prior to admission but denies SI today, mood improving, feels safe in the hospital, feels able to ask for support from staff if needed or if his mood worsens) Risk Factors Assessment Male: Yes : Yes Do You Have Access To A Gun?: No Health Problems: No Mental Health Diagnoses: Yes Substance Use Disorders: Yes Previous Attempt: No Family History of Suicide: No Previous Psychiatric Hospitalization: Yes Hopelessness: Yes Protective Factors Assessment Employed: Yes ([employer]) Stable Relationships: Yes Supportive Family: Yes Good Rapport with Provider: Yes (with telemedicine provider in [place]) Interval History Identifying Information MEENAKSHI HEARD is a 28-year-old man who currently lives in [place] alone, has a history of depression, anxiety, polysubstance use, and was admitted on 08/29/24 15:33 on a 201 voluntary commitment for SI with plan to overdose on his medications. Chief Complaint "Good-margy". Review of Systems Sleep Information Total Hours of Sleep: 6 Sleep Comments: HS scheduled meds Meal Information Percent Meal Consumed - Breakfast: 10 Percent Meal Consumed - Lunch: 60 Percent Meal Consumed - Dinner: 50 Subjective Subjective Patient was seen & assessed and interval progress reviewed with treatment team nursing and social work. Reported anxiety last evening and received prn Vistaril. Reported feeling like a burden to his family and guilty last evening. Reports his anxiety is well controlled today, feels his depression persists as the main target symptom but denies SI today. He feels this is improving due to being in the hospital and knowing we are working to get him outpatient therapy and psychiatry. He signed an GEETA for his outpatient psychiatrist in [place], discussed that I left her a message to coordinate care. He is agreeable to outpatient dual diagnosis therapy and feels confident that he will not return to cocaine and Xanax use. He also wants to start exercising more consistently again to improve his depression and anxiety. Physical Exam Vital Signs (Past 24 Hours) Last Vital Signs Temp 36.5 C 08/31/24 06:47 Pulse 48 L 08/31/24 06:48 Resp 16 08/31/24 06:47 BP 96/64 L 08/31/24 06:48 Pulse Ox 99 08/29/24 15:56 O2 Del Method Room Air 08/29/24 15:56 Results & Data ([facility]) Current Inpatient Medications Current Inpatient Medications: Current Inpatient Medications Acetaminophen (Acetaminophen 325 Mg Tab) 650 mg PO Q4H PRN PRN Reason: Headache or Minor Fever Stop: 09/28/24 16:26 Al Hydrox/Mg Hydrox/Simethicone (Aluminum/Magnesium Susp 30 Ml Udc) 30 ml PO Q4H PRN PRN Reason: GI Upset Stop: 09/28/24 16:26 Bismuth Subsalicylate (Bismuth Subsalicylate 262 Mg Chew) 2 tab PO Q30M PRN PRN Reason: Loose Stool/Diarrhea Stop: 09/28/24 16:26 Buspirone HCl (Buspirone 15 Mg Tab) 15 mg PO BID [facility]ANKIE Stop: 09/28/24 20:59 Last Admin: 08/30/24 21:32 Dose: 15 mg Clonazepam (Clonazepam 0.5 Mg Tab) 0.5 mg PO BID [facility] Stop: 09/28/24 20:59 Last Admin: 08/30/24 21:32 Dose: 0.5 mg Gabapentin (Gabapentin 600 Mg Tab) 300 mg PO BID [facility] Stop: 09/28/24 20:59 Last Admin: 08/30/24 21:32 Dose: 300 mg Hydroxyzine HCl (Hydroxyzine Hcl 25 Mg Tab) 50 mg PO HSZ PRN PRN Reason: Insomnia Stop: 09/28/24 16:26 Hydroxyzine HCl (Hydroxyzine Hcl 25 Mg Tab) 25 mg PO Q4H PRN PRN Reason: Anxiety Stop: 09/28/24 16:26 Last Admin: 08/30/24 17:52 Dose: 25 mg Magnesium Hydroxide (Magnesium Hydroxide Susp 30 Ml Udc) 30 ml PO DAILY PRN PRN Reason: Constipation Stop: 09/28/24 16:26 Mirtazapine (Mirtazapine Tab 15 Mg Tab) 30 mg PO HS FRANKIE Stop: 09/28/24 21:59 Last Admin: 08/30/24 21:32 Dose: 30 mg Miscellaneous (Remove Nicoderm Patch) 1 each N/A DAILY@0859 [facility] Stop: 09/29/24 08:58 Last Admin: 08/30/24 09:57 Dose: 1 each Miscellaneous (Desvenlafaxine Succinate [Pristiq] 100 Mg ~ Order Awaiting Action) 1 each N/A QS [facility] Stop: 09/29/24 15:59 Last Admin: 08/30/24 16:29 Dose: Not Given Nicotine (Nicotine 21 Mg/24 Hr Tdsy) 1 patch TD QAM [facility] Stop: 09/28/24 16:29 Last Admin: 08/30/24 09:54 Dose: 1 patch Nicotine Polacrilex (Nicotine Polacrilex 2 Mg Gum) 2 piece MT Q2H PRN PRN Reason: smoking cessation Stop: 09/28/24 16:14 Last Admin: 08/30/24 21:33 Dose: 2 piece Sodium Chloride (Sodium Chloride 0.65% Na Soln 45 Ml ([place])) 1 - 2 sprays NA PRN PRN PRN Reason: Nasal Dryness/Congestion Stop: 09/28/24 16:26 Mental Health & Subst Abuse Tx Therapist Name of Therapist: N/A Staff Midwife/Apprenticeship Director Name of Staff Midwife/Apprenticeship Director: N/A
[2024-08-31] MEDS: DESVENLAFAXINE SUCCINATE ER TABLET PO SCH (12:51)
[2024-08-31] MEDS ORDERED: PROPRANOLOL HCL 10 MG TAB PO PRN (16:30)
[2024-08-31] MEDS ORDERED: clonazePAM 0.5 MG TAB PO PRN (16:31)
[2024-08-31] MEDS: hydrOXYzine HCl 25 MG TAB PO PRN (20:47)
[2024-08-31] MEDS: clonazePAM 0.5 MG TAB PO SCH (21:44)
--- NOTE | 2024-09-01 08:45 | Psychiatric Progress Note ---
Date of Service September 01, 2024 Impression / Recommendations Impression MEENAKSHI HEARD is a 28-year-old man who currently lives in [place] alone, has a history of depression, anxiety, polysubstance use, and was admitted on 08/29/24 15:33 on a 201 voluntary commitment for SI with plan to overdose on his medications. Diagnostically consistent with unspecified depression with differential including MDD vs polysubstance use-induced mood changes. Also meets criteria for WALDO with panic attacks. History and recent substance use consistent with cocaine and benzodiazepine use disorder. A: Mood improving, tolerating Klonopin taper well, now only using as prn. Denying SI. His outpatient psychiatrist called back but attempts to connect were not successful so will continue to re-attempt. Overall, I spent a total of 35 minutes on this case including meeting with the patient, reviewing the chart, nursing report, multidisciplinary team meeting, orders, and documentation and reviewing collateral from family and calling back his outpatient provider. (1) Suicidal ideations: (2) Major depression, recurrent: (3) Generalized anxiety disorder with panic attacks: (4) Depression: (5) Anxiety: (6) Substance use disorder: (7) Cocaine use disorder: Plan 09/01/2024: Continue current medications and tx plan. 08/31/2024: -Restart Wellbutrin SR 100mg daily tomorrow AM -Decrease Klonopin to 0.5mg qAM and 0.25mg HS and then starting tomorrow to 0.5mg daily prn for panic attacks -Increase gabapentin to 300mg BID prn for anxiety in addition to scheduled 300mg BID -Start propranolol 10mg BID prn for panic attacks 08/30/2024: The patient was admitted to the [facility] ([facility] mental [facility] unit) on q15 min checks (behavioral with suicide precautions) for safety. The patient will participate in group, recreational, and milieu therapies and will be offered additional individual and family sessions as clinically appropriate. -Need to get external records and call [place] pharmacy to confirm recent rock zodiazepine and other medication scripts are accurate since they were filled outside of the state -For now will continue with prior to admission medications of * mirtazapine 30mg HS * Pristiq 100mg daily * Buspar 15mg BID -Adjust prior to admission medications of: * gabapentin 300mg BID (reviewed risks including but not limited to respiratory suppression, fatality, need to avoid driving or operating machinery while using, potential for misuse) * Klonopin reduced to 0.5mg BID -Work on outpatient referrals for psychiatry, therapy (ideally with dual diagnosis focus) Inventory Assets Strengths: supportive relationships, willing to get treatment Needs: safety and stabilization, medication adjustment, additional coping skills, increased outpatient services Suicide Risk Level Suicide Risk Level: Moderate (q15 min suicide checks) (depression with SI with plan prior to admission but now denying SI, mood improving, feels safe in the hospital, feels able to ask for support from staff if needed or if his mood worsens) Risk Factors Assessment Male: Yes : Yes Do You Have Access To A Gun?: No Health Problems: No Mental Health Diagnoses: Yes Substance Use Disorders: Yes Previous Attempt: No Family History of Suicide: No Previous Psychiatric Hospitalization: Yes Hopelessness: Yes Protective Factors Assessment Employed: Yes ([employer]) Stable Relationships: Yes Supportive Family: Yes Good Rapport with Provider: Yes (with telemedicine provider in [place]) Interval History Identifying Information MEENAKSHI HEARD is a 28-year-old man who currently lives in [place] alone, has a history of depression, anxiety, polysubstance use, and was admitted on 08/29/24 15:33 on a 201 voluntary commitment for SI with plan to overdose on his medications. Chief Complaint "Doing good". Review of Systems Sleep Information Total Hours of Sleep: 6 Sleep Comments: HS scheduled meds Meal Information Percent Meal Consumed - Breakfast: 100 Percent Meal Consumed - Lunch: 80 Percent Meal Consumed - Dinner: 80 Subjective Subjective Patient was seen & assessed and interval progress reviewed with treatment team nursing and social work. Attending groups, last evening reported anxiety and wanted to try prn propranolol but his HR was too low so took Vistaril with noted beneficial effect by staff. Last evening reported his mood as "grateful". Today reports his mood is improving, reports relief that he is managing the Klonopin taper without increase in anxiety or worsening mood this helped him feel more in control. Denies SI. Did have some nightmares last night so didn't sleep quite as well. He feels the reintroduction of Wellbutrin is helpful. Reviewed CAMS regarding his recent SI. He rates his overall risk as 1/5 (lowest risk) and rates his wish to live as 8/8 (highest, very much) and wish to as 1/8 (very low) and is able to cite many reasons for living. Reviewed that some of the factors contributing to his SI, including his sense of "why I was put on this earth" will be good things to explore more in therapy and he agrees. Spoke about his future goals of finishing school in [place] and moving back there in about a year. Likes his medications as they are, doesn't desire any further changes. Physical Exam Psychiatric Orientation: alert and oriented x 3 Apperance: appropriately dressed and appropriately groomed Eye Contact: good eye contact Motor Behavior: no abnormal motor movements Speech: normal rate/rhythm/volume of speech Affect: + constricted affect (but with some smiles) Mood: + anxious mood; no depressed mood Thought Process: goal directed thought process Thought Content: reality based without delusions Suicidal Thoughts: denies suicidal thoughts, denies suicidal plan and denies suicidal intent Homicidal Thoughts: denies homicidal thoughts Hallucinations: no auditory hallucinations and no visual hallucinations Cognition: recent memory grossly intact, remote memory grossly intact, attention grossly intact and language grossly intact Estimated Intelligence: consistent with education level Insight: + fair insight Judgment: + fair judgement Vital Signs (Past 24 Hours) Last Vital Signs Temp 36.1 C L 09/01/24 05:56 Pulse 73 09/01/24 05:57 Resp 16 09/01/24 05:56 BP 93/60 L 09/01/24 05:57 Pulse Ox 99 08/29/24 15:56 O2 Del Method Room Air 08/29/24 15:56 Results & Data ([facility]) Current Inpatient Medications Current Inpatient Medications: Current Inpatient Medications Acetaminophen (Acetaminophen 325 Mg Tab) 650 mg PO Q4H PRN PRN Reason: Headache or Minor Fever Stop: 09/28/24 16:26 Al Hydrox/Mg Hydrox/Simethicone (Aluminum/Magnesium Susp 30 Ml Udc) 30 ml PO Q4H PRN PRN Reason: GI Upset Stop: 09/28/24 16:26 Bismuth Subsalicylate (Bismuth Subsalicylate 262 Mg Chew) 2 tab PO Q30M PRN PRN Reason: Loose Stool/Diarrhea Stop: 09/28/24 16:26 Bupropion HCl (Bupropion Sr 100 Mg Tabcr) 100 mg PO DAILY [facility] Stop: 10/01/24 08:59 Buspirone HCl (Buspirone 15 Mg Tab) 15 mg PO BID [facility] Stop: 09/28/24 20:59 Last Admin: 08/31/24 21:43 Dose: 15 mg Clonazepam (Clonazepam 0.5 Mg Tab) 0.5 mg PO DAILY PRN PRN Reason: panic attack Stop: 09/30/24 16:30 Clonazepam (Clonazepam 0.5 Mg Tab) 0.25 mg PO HS [facility]IE Stop: 09/30/24 21:59 Last Admin: 08/31/24 21:44 Dose: 0.25 mg Desvenlafaxine Succinate (Desvenlafaxine Succinate Er Tablet) 1 tab PO Q24H [facility] Stop: 09/30/24 12:29 Last Admin: 08/31/24 12:51 Dose: 1 tab Gabapentin (Gabapentin 600 Mg Tab) 300 mg PO BID [facility] Stop: 09/28/24 20:59 Last Admin: 08/31/24 21:43 Dose: 300 mg Gabapentin (Gabapentin 300 Mg Cap) 300 mg PO BID PRN PRN Reason: Anxiety Stop: 09/30/24 20:59 Hydroxyzine HCl (Hydroxyzine Hcl 25 Mg Tab) 50 mg PO HSZ PRN PRN Reason: Insomnia Stop: 09/28/24 16:26 Last Admin: 08/31/24 20:47 Dose: 50 mg Hydroxyzine HCl (Hydroxyzine Hcl 25 Mg Tab) 25 mg PO Q4H PRN PRN Reason: Anxiety Stop: 09/28/24 16:26 Last Admin: 08/30/24 17:52 Dose: 25 mg Magnesium Hydroxide (Magnesium Hydroxide Susp 30 Ml Udc) 30 ml PO DAILY PRN PRN Reason: Constipation Stop: 09/28/24 16:26 Mirtazapine (Mirtazapine Tab 15 Mg Tab) 30 mg PO HS [facility] Stop: 09/28/24 21:59 Last Admin: 08/31/24 21:43 Dose: 30 mg Miscellaneous (Remove Nicoderm Patch) 1 each N/A DAILY@0859 [facility] Stop: 09/29/24 08:58 Last Admin: 08/31/24 10:27 Dose: 1 each Nicotine (Nicotine 21 Mg/24 Hr Tdsy) 1 patch TD QAM [facility] Stop: 09/28/24 16:29 Last Admin: 08/31/24 10:27 Dose: 1 patch Nicotine Polacrilex (Nicotine Polacrilex 2 Mg Gum) 2 piece MT Q2H PRN PRN Reason: smoking cessation Stop: 09/28/24 16:14 Last Admin: 08/31/24 21:58 Dose: 2 piece Propranolol HCl (Propranolol Hcl 10 Mg Tab) 10 mg PO BID PRN PRN Reason: panic attack Stop: 09/30/24 20:59 Sodium Chloride (Sodium Chloride 0.65% Na Soln 45 Ml ([place])) 1 - 2 sprays NA PRN PRN PRN Reason: Nasal Dryness/Congestion Stop: 09/28/24 16:26 Mental Health & Subst Abuse Tx Therapist Name of Therapist: Gaby Brower Therapist's Date of Therapist Appointment: 09/14/24 Time of Therapist Appointment: 3:00 PM Therapy Appointment Comment: IN PERSON APPOINTMENT: [facility] [address] [facility] [address] Director Of Physical Security Name of Director Of Physical Security: N/A Post Discharge Appointments Ship Purser Name of Ship Purser: [facility] IN PERSON APPOINTMENT Phone Number of Ship Purser: PH: [phone] - Address: [facility] [address] [facility] Date of Appointment with Ship Purser: 09/07/24 Time of Appointment with Ship Purser: 11:00 Ship Purser Appointment Comment: Certified recovery rn will be assigned for 1:1 sessions
[2024-09-01] MEDS: buPROPion SR 100 MG TABCR PO SCH (08:46)
[2024-09-01] MEDS: BISMUTH SUBSALICYLATE 262 MG CHEW PO PRN (12:43)
[2024-09-01 16:21] LABS: Marijuana Quant, GCMS Urine 2092 ng/mL (<5)
[2024-09-01] MEDS: GABAPENTIN 300 MG CAP PO PRN (22:02)
--- NOTE | 2024-09-02 11:12 | Discharge Summary ---
Date of Service September 02, 2024 History of Present Illness Willi presents for psychiatric admission for worsening depression and SI with plan of overdosing on his medications in the context of multiple psychosocial stressors including relapse of polysubstance use, not being able to attend therapy due to his 6 day a week work schedule, work schedule, recently ended a relationship but has felt guilt trying to keep her from talking with him and his dad reaching out to try to reconnect. About three months his depression starting to worsen and it's escalated recently. He endorses depressive symptoms including anhedonia, increased irritability vs more direct with others about the truth, tearfulness, self-gu ilt, hopelessness, decreased energy, decreased motivation, excessive sleep, decreased appetite with all symptoms occurring even prior to relapse of cocaine and Xanax use. Describes that depression and anxiety typically both worsen then his anxiety will start to lessen and suicidal thoughts will emerge as the depression intensifies. He endorses that anxiety has been "not too bad", and "under control". Prior to the relapse, and use of Xanax, was because he was trying to avoid overuse of his benzodiazepines. He uses Xanax when using cocaine because he otherwise has more panic attacks. Typically has panic attacks, when not using substances, once a week on average. Recently was having more panic attacks at work. He describes fear of not being able to have his anxiety managed due to his substance use issues because of long need for benzodiazepines since age 18. He is currently prescribed psychiatric medications of: Wellbutrin SR 100mg daily (worked in the past but had increased anxiety, it has seemed to help with depression but started one week ago), Pristiq 100mg or maybe 75mg daily (plan was to taper this, fairly recent), Buspar 15mg BID (has been on this a long time and finds it helpful), Klonopin 1mg BID prn (unable to verify in PDMP as reports his family has been mailing scripts from [place], over the last month has been taking 1mg BID every day), gabapentin 600mg BID (has been on this for "awhile", for anxiety, takes it as 600mg HS), mirtazapine 30mg HS (about 6 months, can make him a little groggy in the morning sometimes but helps anxiety). He wants to taper off the Pristiq and increase the Wellbutrin. He notes "I just came here to get a therapist and a psychiatrist". He feels all of his medications are working well except his depression medications. Psychiatric ROS notable for no current nor history of symptoms of eddie, psychosis, PTSD, OCD nor eating disorder. Additional history per ED CM note on 08/29/2024: "Met with Marcos to complete psychiatric assessment. Marcos has been struggling with suicidal thoughts increasing in severity for one month. He moved back to the area from [place] approximately one month ago after he ended his relationship with his girlfriend. He shares this break-up is a small piece of why his mental health is so low right now. He carries diagnoses of depression and anxiety for which he followed with a psychiatrist and therapist in [place]. Marcos endorses depressive symptoms that are significantly impacting his daily life. He is employed at the [employer] and is finding it hard to even get out of bed in the morning. He has had daily suicidal thoughts for approximately a month now and has had distressing thoughts of overdosing on his medication. He is prescribed Effexor and Gabapentin. One week ago, Wellbutrin was added to his medications. He has had to have his medications shipped to him while he is trying to establish with outpatient providers locally. Marcos shares that he has limited to no social supports locally. The rest of his family lives in [place]. He lives in an apartment alone. He feels very isolated. He worries that if he does not sign himself in for inpatient treatment that he will act on his suicidal thoughts. Marcos denies homicidal ideation, auditory and visual hallucinations, and any history of self-injurious behavior. He denies alcohol use. He does vape nicotine daily and is requesting nicotine gum. Marcos has a history of substance use and his drug of choice was cocaine. He did have a relapse of cocaine a little over a week ago. Marcos shares that this relapse has only made him feel like a piece of shit and even worse about himself." Physical Exam Vital Signs (Past 24 Hours) Last Vital Signs Temp 36.4 C L 09/02/24 06:00 Pulse 49 L 09/02/24 06:06 Resp 16 09/02/24 06:00 BP 102/66 09/02/24 06:06 Pulse Ox 99 08/29/24 15:56 O2 Del Method Room Air 08/29/24 15:56 Principal Diagnosis Major Depressive Disorder, recurrent Psychiatric Data See daily stay summary. In short, patient was engaged with the social/therapeutic milieu of the unit, safety was maintained and the patient was cooperative with care. Medication changes included taper of Klonopin to 0.5mg daily prn for panic attacks, initiation of propranolol 10mg BID prn for performance anxiety, dose change of gabapentin to 300mg BID scheduled and 300mg BID prn for anxiety as off-label use for anxiety and Vistaril 50mg HS prn for insomnia and they tolerated this well. A support session was held and safety plan was completed prior to discharge. Motivational interviewing was done regarding recent substance use and he is motivated to avoid future substance use and is agreeable with plan for ongoing taper of Klonopin in outpatient setting with ultimate goal of only having a few tabs per month to be used for panic attacks as he re-establishes with outpatient therapy and gets further benefit from recent dose increase of Pristiq. They participated in safety planning and in discussions about ways to seek support and recognizing warning signs and utilizing coping skills. Reviewed ways to have their safety plan and contacts easily available should thoughts of SI re-emerge in the future. Reviewed importance of seeking emergency care should SI intensify, worsen or should they feel unsafe in the future which they agree to do. On the day of discharge they stated their mood was "good" and remained future-oriented including talking a week off from work, starting a regular routine of physical activity again, continuing to focus on sleep hygiene, avoiding substance use, eventual long-term plan to move to [place], seeing his grandparents and engaging in aftercare appointments for psychiatry, therapy and peer support. He expresses gratitude for the benefits he found from this inpatient admission. Day of Discharge Assessment Today the patient voices readiness for discharge. They note improvement in mood and anxiety. They deny thoughts of harm to self or others. Thoughts are organized and they are clinically improved from admission. There is no evidence of psychosis. They improved in the hospital with support and medication adjustments. They agree to take medications as prescribed and keep follow-up appointments. At the time of the discharge they are deemed to be stable and appropriate for outpatient level of care. They are not deemed to be at imminent risk of harm to self or others. They are aware of emergency and crisis services. Knows to call 911 or go to nearest emergency care center if in a crisis which cannot be handled as an outpatient. Suicide risk assessment: Acute risk is low given improvement in mood and denial of SI, lack of access to lethal means, plan to avoid substance use, improvement in sleep, hopefulness and lessening of anxiety. Chronic risk is moderate to high given some non-modifiable risk factors: psychiatric co-morbid diagnoses, periods of impulsivity, prior psychiatric hospitalizations, limited social support, childhood trauma but also with protective factors including: employed, sense of responsibility to family and social supports, outpatient care in place, positive coping skills, positive problem solving, willingness to engage with treatment and self-observation. Counseled on ways to reduce acute and chronic risk including engaging with outpatient providers, using safety plan if needed, utilizing supports, avoiding substance use, taking medication, and using coping skills. Modifiable risk facto rs of SI, anxiety and depression were addressed during hospitalization through development of new coping skills, support meeting, safety planning, and medication adjustments. Discharge physical exam: See admission H&P, MSE per above and day of discharge summary. Overall, I spent a total of 35 minutes on this case including meeting with the patient, reviewing the chart, nursing report, multidisciplinary team meeting, discharge orders, anticipatory planning, safety planning, risk assessment and documentation. Transition of Care Transition Of Care Record: was reviewed with the patient Advance Directives Advance Directives Information Provided: No Advance Directives: No Mental Health Advance Directive: No Advance Directives on File: No Living Will: No Power of Ip Architect: No Advance Directives Reason:: Declines as Mental Health Visit. Suicide Risk Level Suicide Risk Level Comments: Acute risk is low, see further assessment above Risk Factors Assessment Male: Yes : Yes Do You Have Access To A Gun?: No Health Problems: No Mental Health Diagnoses: Yes Substance Use Disorders: Yes Previous Attempt: No Family History of Suicide: No Previous Psychiatric Hospitalization: Yes Hopelessness: No Protective Factors Assessment Employed: Yes ([employer]) Stable Relationships: Yes Supportive Family: Yes Good Rapport with Provider: Yes (with telemedicine provider in [place]) Tobacco Cessation at Discharge Tobacco Cessation Medication Prescribed at Discharge: Offered & Prescribed Discharge Data Lab Results 08/29/24 12:05 WBC 8.94 RBC 4.95 Hgb 14.3 Hct 41.2 L MCV 83.2 MCH 28.9 MCHC 34.7 RDW Std Deviation 39.2 RDW Coeff of [place] 13.1 Plt Count 346 MPV 10.2 Immature Gran % (Auto) 0.2 Neut % (Auto) 75.5 Lymph % (Auto) 17.6 [place] % (Auto) 6.2 Eos % (Auto) 0.4 Baso % (Auto) 0.1 Neut # (Auto) 6.75 H Lymph # (Auto) 1.57 [place] # (Auto) 0.55 Eos # (Auto) 0.04 Baso # (Auto) 0.01 Immature Gran # (Auto) 0.02 Sodium 140 Potassium 4.0 Chloride 106 Carbon Dioxide 26 Anion Gap 8 BUN 12 Creatinine 0.87 Est Cr Clr Drug Dosing 124.5 eGFR 122.04 BUN/Creatinine Ratio 13.8 Glucose 99 Calcium 9.6 Total Bilirubin 0.4 AST 15 ALT 12 Alkaline Phosphatase 73 Total Protein 7.3 Albumin 4.6 Globulin 2.7 Albumin/Globulin Ratio 1.7 TSH 2.243 Urine Color Yellow Urine Appearance Clear Urine pH 6.5 Ur Specific [place] 1.007 Urine Protein Negative Urine Glucose (UA) Negative Urine Ketones Negative Urine Blood Negative Urine Nitrite Negative Urine Bilirubin Negative Urine Urobilinogen Negative Ur Leukocyte Esterase Negative Salicylates < 3.0 L Urine Opiates Screen Neg Ur Methadone, Qual Neg Urine Fentanyl Screen Neg Acetaminophen 11 Urine Barbiturates Neg Ur Phencyclidine (PCP) Neg U Amphetamin/Meth Scrn Neg MDMA (Ecstasy) Screen Neg U Benzodiazepines Scrn Neg Ur Cocaine Metabolite Neg U Marijuana (THC) Screen Pos H U Marijuana THC Carboxy 2092 H Drug Screen Comment SEE NOTE Ethyl Alcohol mg/dL < 10.0 SARS-CoV-2, RNA, NAAT NEGATIVE Hospital Course (1) Suicidal ideations: (2) Major depression, recurrent: (3) Generalized anxiety disorder with panic attacks: (4) Depression: (5) Anxiety: (6) Substance use disorder: (7) Cocaine use disorder: Plan 09/02/2024: Slept well, feels his mood is improved, feels safe and ready to go and desires discharge. 09/01/2024: Continue current medications and tx plan. 08/31/2024: -Restart Wellbutrin SR 100mg daily tomorrow AM -Decrease Klonopin to 0.5mg qAM and 0.25mg HS and then starting tomorrow to 0.5mg daily prn for panic attacks -Increase gabapentin to 300mg BID prn for anxiety in addition to scheduled 300mg BID -Start propranolol 10mg BID prn for panic attacks 08/30/2024: The patient was admitted to the [facility] ([facility] inpatient mental health unit) on q15 min checks (behavioral with suicide precautions) for safety. The patient will participate in group, recreational, and milieu therapies and will be offered additional individual and family sessions as clinically appropriate. -Need to get external records and call [place] pharmacy to confirm recent be nzodiazepine and other medication scripts are accurate since they were filled outside of the state -For now will continue with prior to admission medications of * mirtazapine 30mg HS * Pristiq 100mg daily * Buspar 15mg BID -Adjust prior to admission medications of: * gabapentin 300mg BID (reviewed risks including but not limited to respiratory suppression, fatality, need to avoid driving or operating machinery while using, potential for misuse) * Klonopin reduced to 0.5mg BID -Work on outpatient referrals for psychiatry, therapy (ideally with dual diagnosis focus) Mental Health & Subst Abuse Tx Psychiatrist Name of Psychiatrist: Dr. Adrian @ [facility] Psychiatrist's Date Of Appointment With Psychiatric Provider: 10/13/24 Time of Appointment with Psychiatrist: 1:20PM Psychiatric Appointment Comment: Virtual appointment Psychiatrist Release of Information: Obtained, Reviewed and Signed Therapist Name of Therapist: Gaby Lambert - [facility] Therapist's Date of Therapist Appointment: 09/14/24 Time of Therapist Appointment: 3:00 PM Therapy Appointment Comment: IN PERSON APPOINTMENT: [address] [place] [id number] Therapist Release of Information: Obtained, Reviewed and Signed Global Compensation Analyst Name of Global Compensation Analyst: N/A Post Discharge Appointments It Trainee Name of It Trainee: [facility] IN PERSON APPOINTMENT Phone Number of It Trainee: PH: [phone] - Address: [address] [place] [address] Date of Appointment with It Trainee: 09/07/24 Time of Appointment with It Trainee: 11:00 It Trainee Appointment Comment: Certified coding support specialist will be assigned for 1:1 sessions Release of Information for It Trainee: Obtained, Reviewed and Signed Specialist Name of Specialist: Dr Ana Painter Phone Number for Specialist: [phone] Specialty Appointment Comment: Current Psychiatrist in [place] (ho salomon) Smoking Cessation Counseling Tobacco Cessation Medication Prescribed at Discharge: Offered & Prescribed Discharge Plan Discharge Items Patient Disposition: Home - Self-Care Reason For Visit: SUICIDAL IDEATION, ANXIETY/DEPRESSION Discharge Diagnosis: Major Depressive Disorder Activity: Resume your previous activity Non-emergency contact: Primary Care Provider, Psychiatrist and Therapist Call non-emergency contact if: you have any medication questions and your symptoms worsen Follow-up/Referrals: Remington Pop, [Primary Care Provider] - Diet: Regular Addtl Attending Provider Instructions: Optional mobile apps we discussed: -Suicide safety plan -Virtual Hope Box -Consider free mindfulness or meditation videos on youtube or gentle/restorative yoga videos SPECIAL CARE INSTRUCTIONS: 1. Follow through with your scheduled aftercare appointments. If unable to keep an appointment, please call to reschedule. 2. Take your medication only as prescribed. Medication should not be changed or stopped without the approval of your doctor. In the event of worsening symptoms or concerns about side effects, contact your doctor immediately. 3. Utilize new healthy coping skills, anger management skills, and stress management skills learned during your hospitalization. Journal feelings and process them with a support person. Identify stressors or situations that may result in relapse, deterioration or inappropriate behaviors and develop a plan to deal with those issues. 4. If your coping skills are ineffective and you are in crisis, contact your outpatient providers for direction. If unable to reach your providers, please call the [facility] CRISIS LINE AT , go to the [facility] walk-in center at [address], [address], [place], or go to the closest Emergency Room. 5. Avoid alcohol and un-prescribed drugs. 6. You have been provided with the Mental Health Advance Directives Pamphlet for your review. 7. Your condition is stable for discharge to outpatient level of care, but recovery is an ongoing process. Ifthoughts to harm yourself or others return, follow the safety plan developed during your stay. Planning for a safe return home includes securing weapons. Our treatment team recommends weaponsbe removed from the home until your outpatient provider reassesses your progress. In rare cases where the items themselvescannot be removed, guns and ammunitionshould be secured separatelyand keys stored by a reliable personoutside of the home. If you were admitted on an involuntary commitment, the police or other legal authorities may be involved in this process. AFTERCARE APPOINTMENTS: * Please call your insurance company prior to your scheduled appointment to confirm your aftercare providers are covered. Take your insurance information to your appointments. WHO TO CALL AND WHEN: Medical Emergencies: For questions or emergencies related to your hospital stay, please contact the Inpatient Behavioral Health Unit at [phone]. A line ordering clinician is on-call 26/05 for the Behavioral Health Unit for emergencies At any time you feel your situation is an emergency, you may also call 911 immediately. National Crisis Hotline: 831 Pending Studies at Discharge: No Stand-Alone Forms: My [facility], Smoking Cessation Medications and DC Order Prescriptions: New nicotine (polacrilex) [Nicorette] 2 mg Gum 2 mg MT Q2H PRN (Reason: nicotine cravings) Qty: 110 0RF nicotine [Nicoderm CQ] 21 mg/24 hr Patch 24 Hour 1 patch transdermal QAM 30 Days Qty: 28 0RF propranolol 10 mg Tablet 10 mg PO BID PRN (Reason: preformance anxiety) 30 Days Qty: 60 0RF gabapentin 300 mg Capsule 300 mg PO BID PRN (Reason: anxiety) 30 Days Qty: 60 0RF gabapentin 300 mg capsule 300 mg PO BID 30 Days Qty: 60 0RF hydroxyzine HCl 50 mg tablet 50 mg PO HS PRN (Reason: insomnia ) 30 Days Qty: 30 0RF Continued buspirone 15 mg tablet 15 mg PO BID bupropion HCl 100 mg tablet sustained-release 12 hr 100 mg PO DAILY 30 Days Qty: 30 0RF mirtazapine [Remeron] 30 mg tablet 30 mg PO HS 30 Days Qty: 30 0RF desvenlafaxine succinate [Pristiq] 100 mg tablet extended release 24 hr 100 mg PO DAILY 30 Days Qty: 30 0RF Changed clonazepam [Klonopin] 0.5 mg tablet 0.5 mg PO DAILY PRN (Reason: panic attacks) Qty: 0 0RF Discontinued gabapentin [Neurontin] 600 mg tablet 600 mg PO BID Discharge Orders: Discharge Order (Routine); Ordered 09/02/24 Ordered By: Lisa Noyola Admission Data Admit Date/Time: 08/29/24 15:33 Attending Provider: Lisa Noyola Admit Provider: Lisa Noyola Primary Care Provider: Remington Pop Other Interventions: Discharge Summary Assessment (RN) Last Done: 09/02/24 11:35 Coding Level of Care Code 04911 D/C day mgmt > 30 min Diagnoses Suicidal ideations R45.851 Major depression, recurrent F33.9 Generalized anxiety disorder with panic attacks F41.1; F41.0 Depression F32.A Anxiety F41.9 Substance use disorder F19.90 Cocaine use disorder F14.10
== END 2024-09-02 12:58 | disposition home or self-care (01) | DRG 885 ==
LOC: ED 11:41 → 3S 15:33

== ENCOUNTER 2025-02-01 12:53 | Inpatient (IN) ==
--- NOTE | 2025-02-01 13:37 | Emergency Department Note ---
Impression & Plan Threatening suicide Admission ED Provider Note HPI: History obtained from patient. The patient is a 29-year-old gentleman who presents the emergency department via police escort over concern for suicidal threats. Patient states he does suffer from anxiety and depression. Patient states that his depression has been getting worse recently over concerns for his employment/career as well as some relationship issues with his girlfriend. Patient states last evening he did make some suicidal threats to his sister over the phone and this led to his presentation today. Patient states currently he does not feel suicidal but he was having suicidal thoughts last night although he denies a specific plan to harm himself. Patient denies any recent alcohol or drug use. On arrival here to the ED the patient is calm and cooperative, he is alert and oriented x 3 and otherwise appears to be in no acute distress. ROS: - Per HPI Differential Diagnosis: Acute suicidality, anxiety/depression, amongst other potential pathologies. *Outpatient medications and allergy history reviewed. PE: General: Alert HEENT: Normocephalic, trachea midline Eyes: Extraocular eye movement is intact, no scleral erythema Pulmonary: Clear to auscultation bilaterally, no wheezing Cardio: Regular rate and rhythm GI: Abdomen is soft to palpation : No suprapubic tenderness MSK: No evidence of trauma or malformation of the extremities, no edema Skin: No evidence of rash Neuro: Alert, no focal deficits Psychiatric: Cooperative Medical Decision Making: Medical clearance lab work was obtained, patient does not have any leukocytosis, hemoglobin is normal, platelet count is normal, CMP does not show any evidence of any critical findings, there is no acute kidney injury, urinalysis does not show any evidence of blood or infection, urine drug screen is positive for marijuana and otherwise negative. Alcohol level is negative. COVID screening is negative. Overall, the patient was medically cleared and he was assessed by case management, he was determined appropriate for admission. Patient was in agreement for voluntary admission. Patient was assessed for placement here at [facility]. and he was accepted for inpatient care. Patient was transferred to [facility] in stable condition for further management. Consultants/Discussions held with other healthcare providers: -Case management Disposition discussion held by myself with: -Patient Diagnosis: 1. Suicidal threats, acute 2. Anxiety/depression, acute on chronic 3. Marijuana positive UDS Disposition: Admission to psychiatry Lewis Rocha DO Emergency Medicine Past Med/Surg History Problem List (Updated 02/01/25 @ 16:54 by Lewis Rocha DO) Threatening suicide (Acute) Major depression, recurrent Generalized anxiety disorder with panic attacks Cocaine use disorder Medical History (Updated 02/01/25 @ 16:54 by Lewis Rocha DO) Substance use disorder Suicidal ideations Anxiety Depression Social History Smoking Status: Current every day smoker Tobacco Type: E-cigarettes / Vaping Preferred Language: Syriac Leather Belt Shaper Required: No Beliefs That Will Affect Care: None Feels Safe at Home: Yes Gender Identity: Male Allergies Allergies Allergy/AdvReac Type Severity Reaction Status Date / Time lamotrigine [From Lamictal] Allergy Rash Unverified 08/29/24 16:22 Home Meds Home Medications Medication Instructions Recorded Confirmed buspirone 15 mg tablet 15 mg PO BID 08/29/24 08/29/24 Previous Rx's Medication Instructions Recorded bupropion HCl 100 mg tablet,12 hr 100 mg PO DAILY 30 days #30 ea 09/02/24 sustained-release clonazepam 0.5 mg tablet (Klonopin) 0.5 mg PO DAILY PRN panic attacks 09/02/24 #0 tabs desvenlafaxine succinate 100 mg 100 mg PO DAILY MDD 30 days #30 09/02/24 tablet,extended release 24 hr tabs (Pristiq) mirtazapine 30 mg tablet (Remeron) 30 mg PO HS 30 days #30 tabs 09/02/24 nicotine (polacrilex) 2 mg gum 2 mg MT Q2H PRN nicotine cravings 09/02/24 (Nicorette) #110 ea Results & Data (ED) Vital Signs Vital Signs - 24 hr 02/01/25 12:59 Temperature 36.7 C Temperature Source Oral Pulse Rate 65 Respiratory Rate 18 Blood Pressure 126/78 Blood Pressure Mean 94 Pulse Oximetry 98 Oxygen Delivery Method Room Air Sepsis Recent Fever Within 48 Hours No Sepsis New/Unexplained Change in Mental Status No Sepsis Action Taken by Nursing No Action Required Laboratory Data 02/01/25 13:19 02/01/25 13:19 Lab Results 02/01/25 02/01/25 02/01/25 Range/Units 13:19 13:21 14:24 WBC 5.75 (4.8-10.8) K/ul RBC 5.32 (4.70-6.10) M/uL Hgb 15.1 (14.0-18.0) g/dl Hct 43.1 (42.0-52.0) % MCV 81.0 (80.0-100.0) fL MCH 28.4 (25.0-34.0) pg MCHC 35.0 (32.0-36.0) g/dL RDW Std Deviation 37.3 (36.4-46.3) fL RDW Coeff of [place] 12.9 (11.5-14.5) % Plt Count 289 (130-400) K/uL MPV 9.9 (9.4-12.4) fL Immature Gran % (Auto) 0.2 % Neut % (Auto) 67.1 % Lymph % (Auto) 24.5 % [place] % (Auto) 6.1 % Eos % (Auto) 1.9 % Baso % (Auto) 0.2 % Neut # (Auto) 3.86 (1.40-6.50) K/uL Lymph # (Auto) 1.41 (1.20-3.40) K/uL [place] # (Auto) 0.35 (0.11-0.59) K/uL Eos # (Auto) 0.11 (0.00-0.50) K/uL Baso # (Auto) 0.01 (0.00-0.20) K/uL Immature Gran # (Auto) 0.01 (0.01-0.20) K/uL Sodium 140 (136-145) mmol/L Potassium 4.1 (3.5-5.1) mmol/L Chloride 105 (98-107) mmol/L Carbon Dioxide 30 (21-32) mmol/L Anion Gap 5 (3-11) BUN 12 (6-23) mg/dl Creatinine 1.01 (0.6-1.4) mg/dl Est Cr Clr Drug Dosing Not Reportable eGFR 104.54 BUN/Creatinine Ratio 11.9 (10-20) Glucose 91 (70-99(Fasting)) mg/dl Calcium 9.8 (8.6-10.3) mg/dl Total Bilirubin 0.4 (0.2-1.0) mg/dl AST 20 (13-39) U/L ALT 12 (7-52) U/L Alkaline Phosphatase 73 (34-104) U/L Total Protein 7.9 (6.0-8.3) gm/dl Albumin 5.0 (3.4-5.0) gm/dl Globulin 2.9 (2.5-4.0) gm/dl Albumin/Globulin Ratio 1.7 (0.9-2) TSH 3.704 (0.300-4.500) uIu/ml Urine Color Yellow Urine Appearance Clear (Clear) Urine pH 6.5 (4.5-7.5) Ur Specific [place] 1.011 (1.000-1.030) Urine Protein Negative (Negative) Urine Glucose (UA) Negative (Negative) Urine Ketones Negative (Negative) Urine Blood Negative (Negative) Urine Nitrite Negative (Negative) Urine Bilirubin Negative (Negative) Urine Urobilinogen Negative (Negative) Ur Leukocyte Esterase Negative (Negative) Salicylates < 3.0 L (3.0-30) mg/dl Urine Opiates Screen Neg (Neg) Ur Methadone, Qual Neg (Neg) Urine Fentanyl Screen Neg (Neg) Acetaminophen < 3 L (10-30) ug/ml Urine Barbiturates Neg (Neg) Ur Phencyclidine (PCP) Neg (Neg) U Amphetamin/Meth Scrn Neg (Neg) MDMA (Ecstasy) Screen Neg (Neg) U Benzodiazepines Scrn Neg (Neg) Ur Cocaine Metabolite Neg (Neg) U Marijuana (THC) Screen Pos H (Neg) Ethyl Alcohol mg/dL < 10.0 (<10.0) mg/dl SARS-CoV-2, RNA, NAAT NEGATIVE (NEGATIVE) Administered Medications Nicotine Polacrilex (Nicotine Polacrilex 2 Mg Gum) 2 piece MT PRN PRN PRN Reason: Nicotine Withdrawal Symptoms Stop: 03/03/25 15:29 Last Admin: 02/01/25 16:02 Dose: 2 piece Documented By: MARINO Discharge Plan Visit Data Chief Complaint: Mental Health Evaluation ED Provider: Lewis Rocha Discharge Problem: Threatening suicide Patient Disposition: Admitted As Inpatient Discharge Instructions Interventions: ED Discharge Assessment Last Done: 02/01/25 15:44
[2025-02-01 13:51] LABS: Appearance Urine Clear (Clear); Bilirubin Urine Negative (Negative); Blood Urine Negative (Negative); Color Urine Yellow; Glucose Urine UA Negative (Negative); Ketones Urine Negative (Negative); Leukocyte Esterase Urine Negative (Negative); Nitrite Urine Negative (Negative); Protein Urine Negative (Negative); Specific Gravity Urine 1.011 (1.000-1.030); Urobilinogen Urine Negative (Negative); pH Urine 6.5 (4.5-7.5)
[2025-02-01 13:55] LABS: Basophils # (auto) 0.01 K/uL (0.00-0.20); Basophils % (auto) 0.2 %; Eosinophils # (auto) 0.11 K/uL (0.00-0.50); Eosinophils % (auto) 1.9 %; Hematocrit (blood only) 43.1 % (42.0-52.0); Hemoglobin 15.1 g/dl (14.0-18.0); Immature Granulocytes # (auto) 0.01 K/uL (0.01-0.20); Immature Granulocytes % (auto) 0.2 %; Lymphocytes # (auto) 1.41 K/uL (1.20-3.40); Lymphocytes % (auto) 24.5 %; Mean Corpuscular Hemoglobin 28.4 pg (25.0-34.0); Mean Platelet Volume 9.9 fL (9.4-12.4); Monocytes # (auto) 0.35 K/uL (0.11-0.59); Monocytes % (auto) 6.1 %; Neutrophils # (auto) 3.86 K/uL (1.40-6.50); Neutrophils % (auto) 67.1 %; Platelet Count 289 K/uL (130-400); RDW Coefficient of Variation 12.9 % (11.5-14.5); RDW Standard Deviation 37.3 fL (36.4-46.3); Red Blood Count 5.32 M/uL (4.70-6.10); White Blood Count 5.75 K/ul (4.8-10.8)
[2025-02-01 14:11] LABS: Acetaminophen < 3 ug/ml (10-30); Salicylate < 3.0 mg/dl (3.0-30)
[2025-02-01 14:14] LABS: Alanine Aminotransferase 12 U/L (7-52); Albumin Globulin Ratio 1.7 (0.9-2); Alkaline Phosphatase 73 U/L (34-104); Anion Gap 5 (3-11); Aspartate Aminotransferase 20 U/L (13-39); BUN Creatinine Ratio 11.9 (10-20); Bilirubin,Total 0.4 mg/dl (0.2-1.0); Blood Urea Nitrogen 12 mg/dl (6-23); Calcium 9.8 mg/dl (8.6-10.3); Carbon Dioxide 30 mmol/L (21-32); Chloride 105 mmol/L (98-107); Globulin 2.9 gm/dl (2.5-4.0); Glucose 91 mg/dl (70-99(Fasting)); Potassium 4.1 mmol/L (3.5-5.1); Sodium 140 mmol/L (136-145); Total Protein 7.9 gm/dl (6.0-8.3)
[2025-02-01 14:29] LABS: Thyroid Stimulating Hormone 3.704 uIu/ml (0.300-4.500)
[2025-02-01 14:33] LABS: Amphetamines+Metham, Urine Neg (Neg); Barbiturates, Urine Neg (Neg); Benzodiazepine, Urine Neg (Neg); Cocaine, Urine Neg (Neg); Fentanyl, Urine Neg (Neg); MDMA (Ecstacy), Urine Neg (Neg); Marijuana, Urine Pos (Neg); Methadone, Urine Neg (Neg); Opiate, Urine Neg (Neg); Phencyclidine, Urine Neg (Neg)
[2025-02-01] MEDS ORDERED: MAGNESIUM HYDROXIDE SUSP 30 ML UDC PO PRN (15:30)
[2025-02-01] MEDS ORDERED: ALUMINUM/MAGNESIUM SUSP 30 ML UDC PO PRN (15:30)
[2025-02-01] MEDS ORDERED: SODIUM CHLORIDE 0.65% NA SOLN 45 ML (OCEAN) PRN (15:30)
[2025-02-01] MEDS ORDERED: BISMUTH SUBSALICYLATE 262 MG CHEW PO PRN (15:30)
[2025-02-01] MEDS ORDERED: hydrOXYzine HCl 25 MG TAB PO PRN ×2 (15:30)
[2025-02-01] MEDS ORDERED: ACETAMINOPHEN 325 MG TAB PO PRN (15:30)
[2025-02-01] MEDS: NICOTINE POLACRILEX 2 MG GUM MT PRN (16:02)
[2025-02-01] MEDS: busPIRone 15 MG TAB PO SCH (21:11)
[2025-02-01] MEDS: clonazePAM 0.5 MG TAB PO PRN (21:11)
[2025-02-01] MEDS: MIRTAZAPINE TAB 15 MG TAB PO SCH (21:28)
[2025-02-02] MEDS: GABAPENTIN 300 MG CAP PO SCH (09:05)
[2025-02-02] MEDS: NICOTINE 14 MG/24 HR PATCH TD SCH (09:06)
--- NOTE | 2025-02-02 11:39 | History & Physical ---
Date of Service February 02, 2025 Impression / Recommendations Impression Diagnostically consistent with anxiety disorder, depression with suicidal ideation, and possible borderline personality disorder under evaluation. Recent discontinuation of antidepressant medication with reported increased anxiety symptoms but patient feeling "more like himself." Current presentation follows panic attack and concerning communications with family regarding suicidal thoughts. Discussed current situation and treatment plan in detail. Patient denies current suicidal ideation, attributing recent incident to anxiety symptoms not being adequately controlled. Acknowledges history of communicating suicidal thoughts to family members but describes recent event as isolated. Notable discrepancy exists between patient's report of improvement and family's ongoing safety concerns, which he attributes to attention-seeking behavior during periods of distress. He reports active engagement in anxiety management without immediate medication use, which he views as therapeutic progress. Current stressors include partner's upcoming academic examination and hopeful employment transition. He's actively pursuing new employment opportunities with pending interview. Treatment plan reviewed including risks, benefits, and alternatives. Current medication regimen includes prescribed anxiolytics (Klonopin and gabapentin) as well as mirtazapine for anxiety and sleep aid and buspar for anxiety. Support meeting discussed. Reviewed side effects including but not limited to: sedation, respiratory suppression/potentially fatal with combination of gabapentin and Klonopin, increased appetite, dizziness. He is not interested in starting a new antidepressant/SSRI/SNRI at this time for additional management of anxiety. Outpatient follow-up with therapist at [facility] and psychiatrist Dr. Westfall for ongoing medication management. Case management referral to be initiated for additional support services. Will complete safety plan during admission and undergo further diagnostic evaluation for personality disorder considerations. Discussed potential for outpatient DBT skills to further help with anxiety and periods of SI for distress tolerance. Overall I spent a total of 75 minutes for this admission including review of chart records, review of labwork, direct evaluation of the patient, counseling the patient, ordering medication, risk assessment, discussion with the psychiatric liason RN and documentation in the electronic health record. (1) Threatening suicide: (2) Major depression, recurrent: (3) Generalized anxiety disorder with panic attacks: (4) Cluster B personality disorder in adult: Plan 02/02/2025: The patient was admitted to the [facility] ([facility]) on q15 min checks (behavioral with suicide precautions) for safety. The patient will participate in group, recreational, and milieu therapies and will be offered additional individual and family sessions as clinically appropriate. -Continue prior to admission medications: * gabapentin 300mg daily (confirmed with pharmacy as once every afternoon, he reports taking it morning and evening so will continue here as daily every morning) * Buspar 30mg BID * Mirtazapine 15mg HS * Klonopin 0.5mg TID (confirmed with PDMP) -Family meeting to better understand any ongoing safety concerns, or concerns he may be minimizing recent events; though currently he is very future-oriented and focused on returning to outpatient level of care if no ongoing safety concerns arise -Referral for outpatient -Christopher BPD screening Inventory Assets Strengths: supportive relationships, willing to get treatment Needs: safety and stabilization, medication adjustment, additional coping skills, increased outpatient services Suicide Risk Level Suicide Risk Level: Moderate (q15 min suicide checks) (made statements of SI while having panic attack and with history of chronic intermittent SI but denies current SI, feels his mood has been improved in recent weeks and feels safe) Risk Factors Assessment Male: Yes : Yes Do You Have Access To A Gun?: No Health Problems: No Mental Health Diagnoses: Yes Substance Use Disorders: Yes (in remission) Previous Attempt: No Family History of Suicide: No Previous Psychiatric Hospitalization: Yes Hopelessness: No Protective Factors Assessment Employed: No Stable Relationships: Yes Supportive Family: Yes Good Rapport with Provider: Yes Psychiatric History Identifying Data MEENAKSHI HEARD is a 29-year-old man who currently lives in [place], has a history of depression, WALDO with panic attacks, polysubstance use disorder, and was admitted on 02/01/25 15:50 on a 201 voluntary commitment for statements of suicide to his sister. Chief Complaint "I said things I shouldn't have said that I genuinely didn't mean and that I say when I'm very panicky and it's very situational". History of Present Illness He presents for psychiatric admission following a panic attack during which he made suicidal statements to his sister. This occurred in the context of multiple psychosocial stressors including unemployment, his girlfriend's upcoming PhD exam, and his therapist's temporary absence due to paternity leave. He recently stopped Pristiq about 1.5 weeks ago and feels "a lot" better since then as now he's able to feel more happy. He recognizes that this seems at odds with him texting his sister. He notes it was due to the panic attack and "it's a bit attention seeking to be honest". He's been trying to work through his panic attacks before taking the Klonopin but he acknowledges this past week his girlfriend has been stressed out about her PhD exams and he notes "I was disappointed because I felt like I let her down". He's been seeing his [facility] therapist twice a week for many months and not being able to see him last Friday and this Friday was really challenging. He describes the current incident as an isolated event, stating he was "not having my anxiety under control and just kind of panicked." He admits to a history of frequently texting family members about suicidality and plans to over the past years, characterizing this as "attention-seeking" behavior. He reports feeling much better and more like himself since stopping Pristiq about 1.5 weeks ago, despite an increased need to manage his anxiety. He has been working on managing his anxiety without immediately resorting to medication, trying to "force myself to work through my anxiety more before I take, like, my gabapentin or Klonopin." He reports this approach has been beneficial. He endorses anxiety symptoms including panic attacks and excessive worry. He reports a history of ongoing anxiety but less then when he was hospitalized last fall. He denies current suicidal ideation but acknowledges a history of suicidal thoughts during panic attacks. He reports no prior suicide attempts. He is currently prescribed psychiatric medications including BuSpar 30 mg twice daily, gabapentin (per pharmacy once per day, he reports taking it three times per day to twice daily), Klonopin 0.5 mg up to three times daily (though he typically takes 0.5-0.75 mg per day), and mirtazapine 30 mg at bedtime. He reports good adherence to his medication regimen. Pristiq was recently discon tinued. Psychiatric ROS notable for no current symptoms of depression, eddie, psychosis, or eating disorders. History of substance use including alcohol and THC, but current use is limited to "some" THC use with alcohol consumption ceased. Past Psychiatric History Current Psychiatric Diagnosis: Major Depression Recurrent, Anxiety Outpatient Services: [facility] psychiat[facility] for therapy Previous Psych Admissions: 3 prior: [facility] 08/2024 2 prior hospitalizations, 3-4 years ago in [facility] Do You Have Access To A Gun?: No History of Previous Suicide Attempt: No Past Medication Trials: -hx Pristiq-emotionally numbing -hx of Effexor & Wellbutrin being most effective (recalls being on as high of a dose as Wellbutrin XL 150mg gave increased anxiety) -tried "all of the antidepressants" over the past 5 years -benzodiazepines including ativan -trazodone (gives nightmares) -hx of clonidine (but caused too low HR and BP) -hx lamictal (caused rash all over) -hx Seroquel trial for sleep -hx of Adderall -propranolol helped in the past for panic attacks (he thinks maybe was on 5mg) Past Head Trauma/Neuro History hx concussion Allergies Allergy/AdvReac Type Severity Reaction Status Date / Time lamotrigine [From Lamictal] Allergy Rash Unverified 08/29/24 16:22 Home Medications Medication Instructions Recorded Confirmed Type buspirone 15 mg tablet 30 mg PO BID 08/29/24 02/02/25 History clonazepam 0.5 mg tablet (Klonopin) 0.5 mg PO DAILY PRN panic attacks 09/02/24 02/02/25 Rx #0 tabs gabapentin 300 mg capsule 300 mg PO QAM 02/02/25 02/02/25 History mirtazapine 30 mg tablet (Remeron) 30 mg PO HS 02/02/25 02/02/25 History Family History Family History of: Doesn't Know Alcohol History Hx of Alcohol Use Over the Past 12 Months: No AUDIT Total Score: 2 denies any recent use Smoking Use Have You Smoked or Used Tobacco Products in the Last 30 Days: Yes tobacco type: e-cigarettes Smoking Status: Current every day smoker Smoking packs per day: 10 Substance History Hx of Prescription Med Misuse Over the Past 12 Months: No Hx of Over the Counter Med Misuse Over the Past 12 Months: No Hx of Inhalent Misuse Over the Past 12 Months: No Hx of Organic Substance Use Over the Past 12 Months: Yes (MJ use daily) Hx of Illegal Substances/Street Drug Use Over Past 12 Months: Yes Problems as a Result of Past Substance Use: None Identified THC use about 2-3 times per week Personal History Living Arrangements: Apartment Living Arrangements Comments: 8 Months Highest Grade Completed: High School Graduate Highest Grade Completed Comment: 2 years of college Employment Status: Unemployed Marital Status: Living w/ Signif. Other Number Of Children: 0 Beliefs That Will Affect Care: None Current Legal Problems: No Hx Legal Problems: Yes (DUI, 5-6 years ago ) Hx Traumatic Life Events: Yes Patient History Medical History Substance use disorder Suicidal ideations Anxiety Depression Social History Smoking Status: Current every day smoker Tobacco Type: E-cigarettes / Vaping Preferred Language: Macanese Communication Ability: Effective Delivery Merchandiser Required: No Beliefs That Will Affect Care: None Feels Safe at Home: Yes Gender Identity: Male Assistive Devices: None Review of Systems Review of Systems: All systems reviewed & are unremarkable except as noted in HPI & below Physical Exam Psychiatric: Orientation: alert and oriented x 3 Apperance: appropriately dressed and appropriately groomed Eye Contact: good eye contact Motor Behavior: no abnormal motor movements Speech: normal rate/rhythm/volume of speech Affect: + anxious affect Mood: + anxious mood; no depressed mood Thought Process: goal directed thought process Thought Content: reality based without delusions Suicidal Thoughts: denies suicidal thoughts, denies suicidal plan and denies suicidal intent Homicidal Thoughts: denies homicidal thoughts Hallucinations: no auditory hallucinations and no visual hallucinations Cognition: recent memory grossly intact, remote memory grossly intact, attention grossly intact and language grossly intact Estimated Intelligence: consistent with education level Insight: + fair insight Judgment: + limited judgement Vital Signs (Past 24 Hours): Last Vital Signs Temp 36.5 C 02/02/25 06:00 Pulse 41 L 02/02/25 06:00 Resp 16 02/02/25 06:00 BP 97/58 L 02/02/25 06:00 Pulse Ox 98 02/01/25 17:25 O2 Del Method Room Air 02/01/25 17:25 Exam Statement: A physical exam was performed in the ED by Dr. Rocha for the purposes of medical clearance. I accept that physical as correct and adequate for the purposes of the inpatient physical exam. Results & Data ([facility]) Laboratory Results Laboratory Results - last 24 hr 02/01/25 02/01/25 02/01/25 13:19 13:21 14:24 WBC 5.75 RBC 5.32 Hgb 15.1 Hct 43.1 MCV 81.0 MCH 28.4 MCHC 35.0 RDW Std Deviation 37.3 RDW Coeff of [place] 12.9 Plt Count 289 MPV 9.9 Immature Gran % (Auto) 0.2 Neut % (Auto) 67.1 Lymph % (Auto) 24.5 [place] % (Auto) 6.1 Eos % (Auto) 1.9 Baso % (Auto) 0.2 Neut # (Auto) 3.86 Lymph # (Auto) 1.41 [place] # (Auto) 0.35 Eos # (Auto) 0.11 Baso # (Auto) 0.01 Immature Gran # (Auto) 0.01 Sodium 140 Potassium 4.1 Chloride 105 Carbon Dioxide 30 Anion Gap 5 BUN 12 Creatinine 1.01 Est Cr Clr Drug Dosing Not Reportable eGFR 104.54 BUN/Creatinine Ratio 11.9 Glucose 91 Calcium 9.8 Total Bilirubin 0.4 AST 20 ALT 12 Alkaline Phosphatase 73 Total Protein 7.9 Albumin 5.0 Globulin 2.9 Albumin/Globulin Ratio 1.7 TSH 3.704 Urine Color Yellow Urine Appearance Clear Urine pH 6.5 Ur Specific [place] 1.011 Urine Protein Negative Urine Glucose (UA) Negative Urine Ketones Negative Urine Blood Negative Urine Nitrite Negative Urine Bilirubin Negative Urine Urobilinogen Negative Ur Leukocyte Esterase Negative Salicylates < 3.0 L Urine Opiates Screen Neg Ur Methadone, Qual Neg Urine Fentanyl Screen Neg Acetaminophen < 3 L Urine Barbiturates Neg Ur Phencyclidine (PCP) Neg U Amphetamin/Meth Scrn Neg MDMA (Ecstasy) Screen Neg U Benzodiazepines Scrn Neg Ur Cocaine Metabolite Neg U Marijuana (THC) Screen Pos H U Marijuana THC Carboxy Pending Drug Screen Comment Pending Ethyl Alcohol mg/dL < 10.0 SARS-CoV-2, RNA, NAAT NEGATIVE Current Inpatient Medications Current Inpatient Medications: Current Inpatient Medications Acetaminophen (Acetaminophen 325 Mg Tab) 650 mg PO Q4H PRN PRN Reason: Headache or Minor Fever Stop: 03/03/25 15:29 Al Hydrox/Mg Hydrox/Simethicone (Aluminum/Magnesium Susp 30 Ml Udc) 30 ml PO Q4H PRN PRN Reason: GI Upset Stop: 03/03/25 15:29 Bismuth Subsalicylate (Bismuth Subsalicylate 262 Mg Chew) 2 tab PO Q30M PRN PRN Reason: Loose Stool/Diarrhea Stop: 03/03/25 15:29 Buspirone HCl (Buspirone 15 Mg Tab) 30 mg PO BID COUNT INCLUDES THE [facility] Stop: 03/03/25 20:59 Last Admin: 02/02/25 09:05 Dose: 30 mg Clonazepam (Clonazepam 0.5 Mg Tab) 0.5 mg PO TID PRN PRN Reason: Anxiety Stop: 03/03/25 15:52 Last Admin: 02/01/25 21:11 Dose: 0.5 mg Gabapentin (Gabapentin 300 Mg Cap) 300 mg PO QAM COUNT INCLUDES THE [facility] Stop: 03/04/25 08:59 Last Admin: 02/02/25 09:05 Dose: 300 mg Hydroxyzine HCl (Hydroxyzine Hcl 25 Mg Tab) 50 mg PO HSZ PRN PRN Reason: Insomnia Stop: 03/03/25 15:29 Hydroxyzine HCl (Hydroxyzine Hcl 25 Mg Tab) 25 mg PO Q4H PRN PRN Reason: Anxiety Stop: 03/03/25 15:29 Magnesium Hydroxide (Magnesium Hydroxide Susp 30 Ml Udc) 30 ml PO DAILY PRN PRN Reason: Constipation Stop: 03/03/25 15:29 Mirtazapine (Mirtazapine Tab 15 Mg Tab) 30 mg PO HS COUNT INCLUDES THE [facility] Stop: 03/03/25 21:59 Last Admin: 02/01/25 21:28 Dose: 30 mg Miscellaneous (Remove Nicoderm Patch) 1 each N/A DAILY@0859 COUNT INCLUDES THE [facility] Stop: 03/04/25 08:58 Last Admin: 02/02/25 09:06 Dose: 1 each Nicotine (Nicotine 14 Mg/24 Hr Patch) 1 patch TD [facility] Stop: 03/04/25 08:59 Last Admin: 02/02/25 09:06 Dose: 1 patch Nicotine Polacrilex (Nicotine Polacrilex 2 Mg Gum) 2 piece MT PRN PRN PRN Reason: Nicotine Withdrawal Symptoms Stop: 03/03/25 15:29 Last Admin: 02/01/25 21:29 Dose: 2 piece Sodium Chloride (Sodium Chloride 0.65% Na Soln 45 Ml ([place])) 1 - 2 sprays NA PRN PRN PRN Reason: Nasal Dryness/Congestion Stop: 03/03/25 15:29
--- NOTE | 2025-02-03 10:26 | Discharge Summary ---
Date of Service February 03, 2025 History of Present Illness He presents for psychiatric admission following a panic attack during which he made suicidal statements to his sister. This occurred in the context of multiple psychosocial stressors including unemployment, his girlfriend's upcoming PhD exam, and his therapist's temporary absence due to paternity leave. He recently stopped Pristiq about 1.5 weeks ago and feels "a lot" better since then as now he's able to feel more happy. He recognizes that this seems at odds with him texting his sister. He notes it was due to the panic attack and "it's a bit attention seeking to be honest". He's been trying to work through his panic attacks before taking the Klonopin but he acknowledges this past week his girlfriend has been stressed out about her PhD exams and he notes "I was disappointed because I felt like I let her down". He's been seeing his [facility] therapist twice a week for many months and not being able to see him last Friday and this Friday was really challenging. He describes the current incident as an isolated event, stating he was "not having my anxiety under control and just kind of panicked." He admits to a history of frequently texting family members about suicidality and plans to over the past years, characterizing this as "attention-seeking" behavior. He reports feeling much better and more like himself since stopping Pristiq about 1.5 weeks ago, despite an increased need to manage his anxiety. He has been working on managing his anxiety without immediately resorting to medication, trying to "force myself to work through my anxiety more before I take, like, my gabapentin or Klonopin." He reports this approach has been beneficial. He endorses anxiety symptoms including panic attacks and excessive worry. He reports a history of ongoing anxiety but less then when he was hospitalized last fall. He denies current suicidal ideation but acknowledges a history of suicidal thoughts during panic attacks. He reports no prior suicide attempts. He is currently prescribed psychiatric medications including BuSpar 30 mg twice daily, gabapentin (per pharmacy once per day, he reports taking it three times per day to twice daily), Klonopin 0.5 mg up to three times daily (though he typically takes 0.5-0.75 mg per day), and mirtazapine 30 mg at bedtime. He reports good adherence to his medication regimen. Pristiq was recently discontinued. Psychiatric ROS notable for no current symptoms of depression, eddie, psychosis, or eating disorders. History of substance use including alcohol and THC, but current use is limited to "some" THC use with alcohol consumption ceased. Physical Exam Vital Signs (Past 24 Hours) Last Vital Signs Temp 36.5 C 02/03/25 06:42 Pulse 52 L 02/03/25 06:42 Resp 16 02/02/25 06:00 BP 95/58 L 02/03/25 06:49 Pulse Ox 98 02/01/25 17:25 O2 Del Method Room Air 02/01/25 17:25 Principal Diagnosis Unspecified Depressive Disorder Psychiatric Data See daily stay summary. In short, patient was engaged with the social/therapeutic milieu of the unit, safety was maintained and the patient was cooperative with care. There were no medication changes. A support session was held and safety plan was completed prior to discharge. They participated in safety planning and in discussions about ways to seek support and recognizing warning signs and utilizing coping skills. Reviewed ways to have their safety plan and contacts easily available should thoughts of SI re-emerge in the future. Reviewed importance of seeking emergency care should SI intensify, worsen or should they feel unsafe in the future which they agree to do. On the day of discharge they stated their mood was "good" and remained future-oriented including "excited" to spend time with his girlfriend relaxing and celebrating after her exam and engaging in aftercare appointments for psychiatry, therapy and case management. Day of Discharge Assessment Today the patient voices readiness for discharge. They note improvement in mood and anxiety. They deny thoughts of harm to self or others. Thoughts remain organized and they are clinically improved from admission. There is no evidence of psychosis. They improved in the hospital with support. They agree to take medications as prescribed and keep follow-up appointments. At the time of the discharge they are deemed to be stable and appropriate for outpatient level of care. They are not deemed to be at imminent risk of harm to self or others. They are aware of emergency and crisis services. Knows to call 911 or go to nearest emergency care center if in a crisis which cannot be handled as an outpatient. Suicide risk assessment: Acute risk is low given improvement in mood and denial of SI, lack of access to lethal means, hopefulness. Chronic risk is moderate given some non-modifiable risk factors: psychiatric co-morbid diagnoses, periods of impulsivity, emotional reactivity, prior psychiatric hospitalizations, cluster B personality disorder, childhood trauma but also with protective factors including good social support, sense of responsibility to family and social supports, outpatient care in place, positive coping skills, positive problem solving, willingness to engage with treatment and self-observation. Counseled on ways to reduce acute and chronic risk including engaging with outpatient providers, using safety plan if needed, utilizing supports, taking medication, and using coping skills. Modifiable risk factors of SI, anxiety and depression were addressed during hospitalization through development of new coping skills, addition of outpatient support via CM referral, safety planning, and medication adjustments. Discharge physical exam: See admission H&P, MSE per above and day of discharge summary. Overall, I spent a total of 35 minutes on this case including meeting with the patient, reviewing the chart, nursing report, multidisciplinary team meeting, discharge orders, anticipatory planning, safety planning, risk assessment and documentation. Transition of Care Transition Of Care Record: was reviewed with the patient Advance Directives Advance Directives Information Provided: Yes Advance Directives: No Mental Health Advance Directive: No Advance Directives on File: No Living Will: No Power of Field Return Repairer: No Advance Directives Reason:: Declines as Mental Health Visit. Suicide Risk Level Suicide Risk Level Comments: Acute risk is low given denial of SI, future-oriented Risk Factors Assessment Male: Yes : Yes Do You Have Access To A Gun?: No Health Problems: No Mental Health Diagnoses: Yes Substance Use Disorders: Yes (in remission) Previous Attempt: No Family History of Suicide: No Previous Psychiatric Hospitalization: Yes Hopelessness: No Protective Factors Assessment Employed: No Stable Relationships: Yes Supportive Family: Yes Good Rapport with Provider: Yes Discharge Data Lab Results 02/01/25 02/01/25 02/01/25 13:19 13:21 14:24 WBC 5.75 RBC 5.32 Hgb 15.1 Hct 43.1 MCV 81.0 MCH 28.4 MCHC 35.0 RDW Std Deviation 37.3 RDW Coeff of [place] 12.9 Plt Count 289 MPV 9.9 Immature Gran % (Auto) 0.2 Neut % (Auto) 67.1 Lymph % (Auto) 24.5 [place] % (Auto) 6.1 Eos % (Auto) 1.9 Baso % (Auto) 0.2 Neut # (Auto) 3.86 Lymph # (Auto) 1.41 [place] # (Auto) 0.35 Eos # (Auto) 0.11 Baso # (Auto) 0.01 Immature Gran # (Auto) 0.01 Sodium 140 Potassium 4.1 Chloride 105 Carbon Dioxide 30 Anion Gap 5 BUN 12 Creatinine 1.01 Est Cr Clr Drug Dosing Not Reportable eGFR 104.54 BUN/Creatinine Ratio 11.9 Glucose 91 Calcium 9.8 Total Bilirubin 0.4 AST 20 ALT 12 Alkaline Phosphatase 73 Total Protein 7.9 Albumin 5.0 Globulin 2.9 Albumin/Globulin Ratio 1.7 TSH 3.704 Urine Color Yellow Urine Appearance Clear Urine pH 6.5 Ur Specific [place] 1.011 Urine Protein Negative Urine Glucose (UA) Negative Urine Ketones Negative Urine Blood Negative Urine Nitrite Negative Urine Bilirubin Negative Urine Urobilinogen Negative Ur Leukocyte Esterase Negative Salicylates < 3.0 L Urine Opiates Screen Neg Ur Methadone, Qual Neg Urine Fentanyl Screen Neg Acetaminophen < 3 L Urine Barbiturates Neg Ur Phencyclidine (PCP) Neg U Amphetamin/Meth Scrn Neg MDMA (Ecstasy) Screen Neg U Benzodiazepines Scrn Neg Ur Cocaine Metabolite Neg U Marijuana (THC) Screen Pos H Ethyl Alcohol mg/dL < 10.0 SARS-CoV-2, RNA, NAAT NEGATIVE Hospital Course (1) Threatening suicide: (2) Major depression, recurrent: (3) Generalized anxiety disorder with panic attacks: (4) Cluster B personality disorder in adult: Plan 02/03/2025: Support meeting held, he feels safe and desires discharge. 02/02/2025: The patient was admitted to the [facility] ([facility] unit) on q15 min checks (behavioral with suicide precautions) for safety. The patient will participate in group, recreational, and milieu therapies and will be offered additional individual and family sessions as clinically appropriate. -Continue prior to admission medications: * gabapentin 300mg daily (confirmed with pharmacy as once every afternoon, he reports taking it morning and evening so will continue here as daily every morning) * Buspar 30mg BID * Mirtazapine 15mg HS * Klonopin 0.5mg TID (confirmed with PDMP) -Family meeting to better understand any ongoing safety concerns, or concerns he may be minimizing recent events; though currently he is very future-oriented and focused on returning to outpatient level of care if no ongoing safety concerns arise -Referral for outpatient CLARISA Bentley BPD screening Mental Health & Subst Abuse Tx Psychiatrist Name of Psychiatrist: Savita Mckenzie Psychiatrist's Date Of Appointment With Psychiatric Provider: 02/14/25 Time of Appointment with Psychiatrist: 2:10 PM Psychiatric Appointment Comment: Also has appointment 03/21 at 9am Psychiatrist Release of Information: Obtained, Reviewed and Signed Therapist Name of Therapist: Leonarda Cuevas Therapist's Date of Therapist Appointment: 02/03/25 Time of Therapist Appointment: 1130 Therapist Release of Information: Obtained, Reviewed and Signed Forging Dies Final Finisher Name of Forging Dies Final Finisher: [facility] Phone Number for Forging Dies Final Finisher: [phone] Forging Dies Final Finisher Release of Information: Obtained, Reviewed and Signed Post Discharge Appointments Primary Care Physician Name Of Family Doctor/PCP: Dr. Remington Pop Primary Care Provider Appointment Comment: Appointment not needed at this time Primary Care Release of Information: Obtained, Reviewed and Signed Discharge Plan Discharge Items Patient Disposition: Home - Self-Care Reason For Visit: UNSPECIFIED DEPRESSIVE DISORDER Discharge Diagnosis: Unspecified Depressive Disorder, Borderline Personality Disorder Activity: Resume your previous activity Non-emergency contact: Primary Care Provider, Psychiatrist, Therapist and Property Loss Insurance Claim Adjuster Call non-emergency contact if: you have any medication questions and your symptoms worsen Follow-up/Referrals: Remington Pop, DO [Primary Care Provider] - Diet: Regular Addtl Attending Provider Instructions: SPECIAL CARE INSTRUCTIONS: 1. Follow through with your scheduled aftercare appointments. If unable to keep an appointment, please call to reschedule. 2. Take your medication only as prescribed. Medication should not be changed or stopped without the approval of your doctor. In the event of worsening symptoms or concerns about side effects, contact your doctor immediately. 3. Utilize new healthy coping skills, anger management skills, and stress management skills learned during your hospitalization. Journal feelings and process them with a support person. Identify stressors or situations that may result in relapse, deterioration or inappropriate behaviors and develop a plan to deal with those issues. 4. If your coping skills are ineffective and you are in crisis, contact your outpatient providers for direction. If unable to reach your providers, please call the [facility] CRISIS LINE AT , go to the [facility] walk-in center at [address], [address], [place], or go to the closest Emergency Room. 5. Avoid alcohol and un-prescribed drugs. 6. You have been provided with the Mental Health Advance Directives Pamphlet for your review. 7. Your condition is stable for discharge to outpatient level of care, but recovery is an ongoing process. Ifthoughts to harm yourself or others return, follow the safety plan developed during your stay. Planning for a safe return home includes securing weapons. Our treatment team recommends weaponsbe removed from the home until your outpatient provider reassesses your progress. In rare cases where the items themselvescannot be removed, guns and ammunitionshould be secured separatelyand keys stored by a reliable personoutside of the home. If you were admitted on an involuntary commitment, the police or other legal authorities may be involved in this process. AFTERCARE APPOINTMENTS: * Please call your insurance company prior to your scheduled appointment to confirm your aftercare providers are covered. Take your insurance information to your appointments. WHO TO CALL AND WHEN: Medical Emergencies: For questions or emergencies related to your hospital stay, please contact the Inpatient Behavioral Health Unit at [phone]. A emergency department clinician is on-call 26/05 for the Behavioral Health Unit for emergencies At any time you feel your situation is an emergency, you may also call 911 immediately. National Crisis Hotline: 848 Pending Studies at Discharge: No Stand-Alone Forms: My [facility] Medications and DC Order Prescriptions: Continued buspirone 15 mg tablet 30 mg PO BID clonazepam [Klonopin] 0.5 mg tablet 0.5 mg PO DAILY PRN (Reason: panic attacks) Qty: 0 0RF gabapentin 300 mg Capsule 300 mg PO QAM mirtazapine [Remeron] 30 mg Tablet 30 mg PO HS Discharge Orders: Discharge Order (Routine); Ordered 02/03/25 Ordered By: Lisa Noyola Admission Data Admit Date/Time: 02/01/25 15:50 Attending Provider: Lisa Noyola Admit Provider: Lisa Noyola Primary Care Provider: Remington Pop Other Interventions: Discharge Summary Assessment (RN) Last Done: 02/03/25 10:26 Coding Level of Care Code 08893 D/C day mgmt > 30 min Diagnoses Threatening suicide R45.851 Major depression, recurrent F33.9 Generalized anxiety disorder with panic attacks F41.1; F41.0 Cluster B personality disorder in adult F60.9
[2025-02-04 10:12] LABS: Marijuana Quant, GCMS Urine 1360 ng/mL (<5)
== END 2025-02-03 10:43 | disposition home or self-care (01) | DRG 880 ==
LOC: EDSEX → ED 12:53 → 3S 15:44